=== PATIENT | female | born 1955 | race African-American/Black ===

== ENCOUNTER → 2017-08-09 | Outpatient (CLI) | payer OTHER ==
[~2017-08-09] MED LIST: IOPAMIDOL 370 MG/ML 200 ML INFUS..BTL INJ ONE; SODIUM CHLORIDE 0.9% 50ML 50 ML ONE
[2017-08-09 17:10] LABS: BLOOD UREA NITROGEN 14 mg/dL (7-26); BUN/CREATININE RATIO 18 (6-25); CREATININE, SERUM 0.77 mg/dL (0.57-1.11); EST GLOMERULAR FILTRATION RATE > 60 ML/MIN (60-)
--- NOTE | 2017-08-09 18:09 | Diagnostic Imaging Report ---
PROCEDURE: CT ABDOMEN WITH CONTRAST TECHNIQUE: The abdomen was scanned utilizing a multidetector helical scanner from the diaphragm to the iliac crest after the IV administration of 100 cc of Isovue 370 and the oral administration of water. Coronal and sagittal multiplanar reformations were obtained. DLP: 96.5 mGy-cm COMPARISON: CT 12/11/2016 and 12/15/2016 INDICATIONS: MALIGNANT NEOPLASM PANCREAS FINDINGS: LOWER THORAX: Normal. HEPATOBILIARY: No focal hepatic lesions. No biliary ductal dilatation. SPLEEN: Interval splenectomy. PANCREAS: Interval partial pancreatectomy of the body and tail. A 2.1 x 1.5 x 2.1 cm post-operative fluid collection is noted along the resection margin. No focal masses or ductal dilatation within the remaining portions. ADRENALS: No adrenal nodules. KIDNEYS: No hydronephrosis, stones, or solid mass lesions. A few tiny hypodensities in both kidneys are too small to characterize but statistically likely cysts. PERITONEUM / RETROPERITONEUM: No free air or fluid. LYMPH NODES: No lymphadenopathy. VESSELS: Unremarkable. Portal, splenic, portal and superior mesenteric veins are patent. Splenic vein is absent. GI TRACT: Visualized portions of the bowel demonstrate no distention or wall thickening. BONES AND SOFT TISSUES: Status post fusion of L4-L5 and L5-S1 with bone stimulator. No acute or aggressive osseous lesions. Midline laparotomy scar. IMPRESSION: Interval resection of the pancreatic body and tail with a small post-operative fluid collection along the resection margin. Interval splenectomy. No evidence of recurrent or metastatic disease in the visualized abdomen. Dictated by: Balta Gorman M.D. on 08/09/2017 at 18:10 Electronically approved by: Balta Gorman M.D. on 08/09/2017 at 18:10
== END ==
LOC: CT 16:15
PROVIDERS: ATTEND Emergency Medicine
DX: C25.1 Malignant neoplasm of body of pancreas (principal)
CPT/HCPCS: 36415; 74160; 82565; 84520; Q9967

== ENCOUNTER → 2018-10-28 | Outpatient (CLI) | payer OTHER | LOC: CARD 14:08 | PROVIDERS: ATTEND Emergency Medicine | DX: I70.90 Unspecified atherosclerosis (principal); Z86.73 Personal history of transient ischemic attack (TIA), and cerebral infarction without residual deficits | CPT/HCPCS: 93880 ==

== ENCOUNTER 2020-03-12 01:19 | Emergency (ER) | payer OTHER ==
[~2020-03-12] VITALS: Ht 162.6 cm; Wt 53.5 kg
[2020-03-12] MEDS ORDERED: PANTOPRAZOLE 40 MG 10ML VIAL IV STA (01:51)
[2020-03-12 02:04] LABS: BILIRUBIN,URINE NEGATIVE (NEGATIVE); CLARITY,URINE CLEAR (CLEAR); COLOR,URINE YELLOW (YELLOW); KETONES,URINE NEGATIVE (NEGATIVE); LEUKOCYTE ESTERASE ,URINE NEGATIVE (NEGATIVE); NITRITE,URINE NEGATIVE (NEGATIVE); PROTEIN,URINE DIPSTICK NEGATIVE (NEGATIVE); URINE UROBILINOGEN 0.2 mg/dL (0.2 - 1)
[2020-03-12 02:10] LABS: BACTERIA,URINE RARE /HPF; EPITHELIAL CELLS,URINE FEW /LPF; RBC,URINE 0-5 /HPF (0-5); WBC,URINE (MAN) 0-5 /HPF (0-5)
--- NOTE | 2020-03-12 02:23 | Emergency Department Note ---
History of Present Illnes History of Present Illness Chief Complaint: Abdominal Complaints History of Present Illness This is a 64 year old female c/o mid abdominal pain that started last Wednesday. Patient being treated for pancreatic cancer. Denies nausea or vomiting. No distress noted at this time . Historian: Patient Arrival Mode: Car Landing Scaler Required: No Onset (how long ago): day(s) (6) Location: UPPER ABD Quality: PAIN Radiation: Reports non-radiation Severity: mild Onset quality: gradual Duration (how long): day(s) (6) Timing of current episode: intermittent Progression: waxing and waning Chronicity: recurrent Context: Reports recent illness (HAS PANCREATIC CANCER) Relieving factors: none Exacerbating factors: none Associated symptoms: Reports denies other symptoms Past Medical/Family History Physician Review I have reviewed the patient's past medical and family history. Any updates have been documented here. Past Medical History Recent Fever: No Clinical Suspicion of Infectio: No New/Unexplained Change in Ment: No Past Medical History: Diabetes Other Medical History: pancreatic CA Other Surgery: partial pancrectomy spleenectomy Social History Smoking Cessation: Never Smoker Alcohol Use: None Any Illegal Drug Use: No Review of Systems Review of Systems Constitutional: Reports no symptoms EENTM: Reports no symptoms Cardiovascular: Reports no symptoms Respiratory: Reports no symptoms Gastrointestinal: Reports as per HPI Genitourinary: Reports no symptoms Musculoskeletal: Reports no symptoms Integumentary: Reports no symptoms Neurological: Reports no symptoms Psychological: Reports no symptoms Endocrine: Reports no symptoms Hematological/Lymphatic: Reports no symptoms Physical Exam Related Data Allergies: Uncoded Allergies: PENICILLIN (Allergy, Unknown, 03/12/20) Triage Vital Signs Vital Signs Date Time Temp Pulse Resp B/P (MAP) Pulse Ox O2 Delivery O2 Flow Rate FiO2 03/12/20 01:51 99.6 85 20 166/86 95 Room Air Vital signs reviewed: Yes Physical Exam CONSTITUTIONAL Constitutional: Present well-developed, Present well-nourished; Absent distressed HENT HENT: Present normocephalic, Present atraumatic, Present oropharynx clear/moist, Present nose normal HENT L/R: Present left ext ear normal, Present right ext ear normal EYES Eyes: Reports PERRL, Reports conjunctivae normal NECK Neck: Present ROM normal PULMONARY Pulmonary: Present effort normal, Present breath sounds normal CARDIOVASCULAR Cardiovascular: Present regular rhythm, Present heart sounds normal, Present c apillary refill normal, Present normal rate GASTROINTESTINAL Abdominal: Present soft, Present bowel sounds normal, Present tender (MILD EPIGASTRIC TENDERNESS) GENITOURINARY Genitourinary: Present exam deferred SKIN Skin: Present warm, Present dry MUSCULOSKELETAL Musculoskeletal: Present ROM normal NEUROLOGICAL Neurological: Present alert, Present oriented x 3, Present no gross motor or sensory deficits PSYCHOLOGICAL Psychological: Present mood/affect normal, Present judgement normal Results Laboratory Laboratory Laboratory Tests Test 03/12/20 02:05 03/12/20 01:40 White Blood Count 9.90 x10e3/uL (4.8-10.8) Red Blood Count 4.38 x10e6/uL (3.6-5.1) Hemoglobin 11.9 g/dL (12.0-16.0) Hematocrit 37.3 % (34.2-44.1) Mean Corpuscular Volume 85.2 fL (81-99) Mean Corpuscular Hemoglobin 27.2 pg (28-32) Mean Corpuscular Hemoglobin Concent 31.9 g/dL (31-35) Red Cell Distribution Width 14.7 % (11.7-14.4) Platelet Count 269 x10e3/uL (140-360) Neutrophils (%) (Auto) 55.3 % (38.7-80.0) Lymphocytes (%) (Auto) 29.0 % (18.0-39.1) Monocytes (%) (Auto) 11.2 % (4.4-11.3) Eosinophils (%) (Auto) 3.2 % (0.0-6.0) Basophils (%) (Auto) 0.9 % (0.0-1.0) Neutrophils # (Auto) 5.5 (2.1-6.9) Lymphocytes # (Auto) 2.9 (1.0-3.2) Monocytes # (Auto) 1.1 (0.2-0.8) Eosinophils # (Auto) 0.3 (0.0-0.4) Basophils # (Auto) 0.1 (0.0-0.1) Absolute Immature Granulocyte (auto 0.04 x10e3/uL (0-0.1) Sodium Level 142 mmol/L (136-145) Potassium Level 3.8 mmol/L (3.5-5.1) Chloride Level 105 mmol/L (98-107) Carbon Dioxide Level 29 mmol/L (22-29) Anion Gap 11.8 mmol/L (8-16) Blood Urea Nitrogen 16 mg/dL (7-26) Creatinine 0.80 mg/dL (0.57-1.11) Estimat Glomerular Filtration Rate > 60 ML/MIN (60-) BUN/Creatinine Ratio 20 (6-25) Glucose Level 137 mg/dL (74-118) Calcium Level 10.2 mg/dL (8.4-10.2) Total Bilirubin 0.2 mg/dL (0.2-1.2) Aspartate Amino Transf (AST/SGOT) 35 IU/L (5-34) Alanine Aminotransferase (ALT/SGPT) 32 IU/L (0-55) Alkaline Phosphatase 139 IU/L (40-150) Creatine Kinase 103 IU/L (29-168) Creatine Kinase MB 1.50 ng/mL (0-5.0) Troponin I 0.007 ng/mL (0-0.300) Total Protein 8.7 g/dL (6.5-8.1) Albumin 4.0 g/dL (3.5-5.0) Globulin 4.7 g/dL (2.3-3.5) Albumin/Globulin Ratio 0.9 (0.8-2.0) Amylase Level 95 U/L (25-125) Lipase < 4 U/L (8-78) Urine Color Yellow (YELLOW) Urine Clarity Clear (CLEAR) Urine pH 6.5 (5 - 7) Urine Specific [place] 1.010 (1.010-1.025) Urine Protein Negative (NEGATIVE) Urine Glucose (UA) Negative (NEGATIVE) Urine Ketones Negative (NEGATIVE) Urine Blood Negative (NEGATIVE) Urine Nitrite Negative (NEGATIVE) Urine Bilirubin Negative (NEGATIVE) Urine Urobilinogen 0.2 mg/dL (0.2 - 1) Urine Leukocyte Esterase Negative (NEGATIVE) Urine RBC 0-5 /HPF (0-5) Urine WBC 0-5 /HPF (0-5) Urine Epithelial Cells Few /LPF (NONE) Urine Bacteria Rare /HPF (NONE) Laboratory Tests Test 03/12/20 01:40 Urine Color Yellow (YELLOW) Urine Clarity Clear (CLEAR) Urine pH 6.5 (5 - 7) Urine Specific [place] 1.010 (1.010-1.025) Urine Protein Negative (NEGATIVE) Urine Glucose (UA) Negative (NEGATIVE) Urine Ketones Negative (NEGATIVE) Urine Blood Negative (NEGATIVE) Urine Nitrite Negative (NEGATIVE) Urine Bilirubin Negative (NEGATIVE) Urine Urobilinogen 0.2 mg/dL (0.2 - 1) Urine Leukocyte Esterase Negative (NEGATIVE) Urine RBC 0-5 /HPF (0-5) Urine WBC 0-5 /HPF (0-5) Urine Epithelial Cells Few /LPF (NONE) Urine Bacteria Rare /HPF (NONE) Lab results reviewed: Yes Imaging Imaging results reviewed: Yes Impressions Procedure: [id number] DX/ABDOMEN 2 VIEW Exam Date: Exam Time: REPORT STATUS: Signed EXAM: Abdomen Radiograph 2 View(s) supine and upright INDICATION: Abdominal pain ^FLAT AND UPRIGHT ^Y COMPARISON: None FINDINGS: Electronic devices project over the L4 vertebral body and left hemiabdomen. Posterior fusion of L4-S1, incompletely assessed. Gas and stool are seen throughout the colon to the level of the rectum in a nonobstructive pattern. No dilated small bowel loops. No free air. Non specific calcific density projects over the right hepatic lobe. IMPRESSION: Nonobstructive bowel gas pattern. Signed by: Olinda Patel MD on 03/12/2020 3:22 AM Dictated By: OLINDA PATEL MD 1 Transcribed By: LANI on 03/12/20321 COPY TO: DEMETRIA DOWD MD~ Procedures 12 Lead ECG Interpretation ECG Interpretation : ECG: ECG 1 Landing Scaler: Interpreted by ED physician Date: Mar 12, 2020 Time: 02:13 Rhythm: sinus rhythm Rate: normal BPM: 70 QRS axis: normal ST segments normal: Yes T waves normal: Yes Clinical Impression: non-specific ECG Additional Comments OCCASIONAL PAC'S PRESENT Assessment & Plan Medical Decision Making MDM PT WITH UPPER ABD PAIN CBC, CMP, AMYLASE, LIPASE, UA, KUB, CARDIAC ENZYMES ORDERED TO EVAL FOR PANCREATITIS, MYOCARDIAL INFARCTION, CONSTIPATION, ELECTROLYTE ABNORMALITY Assessment & Plan Final Impression: (1) Abdominal pain Depart Disposition: HOME, SELF-CARE Last Vital Signs Date Time Temp Pulse Resp B/P (MAP) Pulse Ox O2 Delivery O2 Flow Rate FiO2 03/12/20 01:51 99.6 85 20 166/86 95 Room Air Medications in the ED Pantoprazole Sodium 40 mg NOW STAT IV ; Start 03/12/20 at 01:51; Stop 03/12/20 at 02:08; Status DC DEMETRIA DOWD MD Mar 12, 2020 02:23
[2020-03-12 02:33] LABS: BASOPHILS # (AUTO) 0.1 (0.0-0.1); BASOPHILS % 0.9 % (0.0-1.0); EOSINOPHILS # (AUTO) 0.3 (0.0-0.4); EOSINOPHILS % 3.2 % (0.0-6.0); HEMATOCRIT 37.3 % (34.2-44.1); HEMOGLOBIN 11.9 g/dL (12.0-16.0); LYMPHOCYTES # (AUTO) 2.9 (1.0-3.2); MEAN CORPUSCULAR HEMOGLOBIN 27.2 pg (28-32); MEAN CORPUSCULAR HGB CONC 31.9 g/dL (31-35); MEAN CORPUSCULAR VOLUME 85.2 fL (81-99); MONOCYTES # (AUTO) 1.1 (0.2-0.8); MONOCYTES % 11.2 % (4.4-11.3); NEUTROPHILS # (AUTO) 5.5 (2.1-6.9); NEUTROPHILS % 55.3 % (38.7-80.0); PLATELET COUNT 269 x10e3/uL (140-360); RED BLOOD COUNT 4.38 x10e6/uL (3.6-5.1); RED CELL DISTRIBUTION WIDTH 14.7 % (11.7-14.4)
[2020-03-12 02:51] LABS: AMYLASE 95 U/L (25-125); LIPASE < 4 U/L (8-78)
--- OUTSIDE RECORDS SUMMARY | 2020-03-12 02:52 | XMS REPORT | Continuity of Care Document ---
Author Author [employer] Address Unknown Phone Unavailable Care Team Providers Care Freight Delivery Driver Name Role Phone L2 Information Exchange Unavailable Un available Problems Problem Status Onset Date Classification Date Reported Comments Source Other specified cardiac dysrhythmias Active Problem Gene Benitez MD, PA Family history of ischemic heart disease and other diseases of the circulatory system Active Problem 08/10/2019 Gene Benitez MD, MARTIN Type 2 diabetes mellitus without complications Active Problem 08/10/2019 Gene Benitez MD, P A Pulmonary hypertension, secondary Active Problem Gene Benitez MD, PA Bradycardia, unspecified Active Problem 08/10/2019 Gene Benitez MD, PA 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 Active Problem 08/10/2019 Gene Benitez MD, PA Hypertensive heart disease without heart failure Active Problem 08/10/2019 Gene Benitez MD, P A Cerebrovascular disease, unspecified Active Problem Gene Benitez MD, PA Secondary pulmonary arterial hypertension Active Problem 08/10/2019 Gene Benitez MD P A Malignant neoplasm of body of pancreas Active Problem Gene Benitez MD, PA Carotid bruit Active Diagnosis 12/30/2014 Gene Benitez MD, PA Medications Medication Details Route Status Patient Instructions Ordering Provider Order Date Source Hydrochlorothiazide 1 tablet i n the morning Orally Active 25 MG Orally Once a day [place] 05/04/2017 Gene Benitez MD, PA Hydrochlorothiazide 1 tablet i n the morning Orally Active 12.5 MG Orally Once a day Tayyan 04/28/2017 Gene Benitez MD, PA Amlodipine Besylate 1 tablet Orally Active 5 MG Orally Once a day [facility] 2015 Gene Benitez MD, PA Amlodipine Besylate 1 tablet Orally Active 5 MG Orally Once a day [facility] 2015 Gene Benitez MD, PA Diltiazem HCl ER 1 capsule Orally No Longer Active 90 MG Orally Twice a day [facility] 2015 Gene Benitez MD, MARTIN Metoprolol Tartrate 1 tablet Orally Active 50 MG Orally Twice a day Emmanuel Benitez MD, MARTIN Folic Acid 1 tablet Orally Active 1 MG Orally Once a day Emmanuel Benitez MD, PA Ibandronate Sodium 1 tablet Orally Active 150 MG Orally once a month Emmanuel Benitez MD, MARTIN Aspirin 1 tablet Orally Active 81 MG Orally Once a day Emmanuel Benitez MD, PA Creon as directed Orally Active [id number] UNIT Orally [facility] Zach Benitez MD, MARTIN Clonazepam 1 tablet Orally Active 1 MG Orally as needed ( prn) Emmanuel Benitez MD, PA Carisoprodol 1 tablet Orally Active 350 MG Orally as needed (prn) Emmanuel Benitez MD, MARTIN Fish Oil 1 capsule Orally Active Orally Emmanuel Benitez MD, MARTIN Famotidine 1 tablet Orally Active 20 MG Orally Once a day Emmanuel Benitez MD, PA Lisinopril 1 tablet Orally Active 20 MG Orally Once a day Emmanuel Benitez MD, MARTIN Lisinopril 1 tablet Orally Active 20 MG Orally Once a day Emmanuel Benitez MD, MARTIN Famotidine 1 tablet Orally Active 20 MG Orally Once a day Emmanuel Benitez MD, MARTIN Clonazepam 1 tablet Orally Active 1 MG Orally as needed ( prn) Emmanuel Benitez MD, PA Ibandronate Sodium 1 tablet Orally Active 150 MG Orally once a month Emmanuel Benitez MD, MARTIN Aspirin 1 tablet Orally Active 81 MG Orally Once a day Emmanuel Benitez MD, PA Folic Acid 1 tablet Orally Active 1 MG Orally Once a day Emmanuel Benitez MD, MARTIN Carisoprodol 1 tablet Orally Active 350 MG Orally as needed (prn) Emmanuel Benitez MD, PA Metoprolol Tartrate 1 tablet Orally Active 50 MG Orally Twice a day Emmanuel Benitez MD, MARTIN Xeloda as directed Orally Active 500 MG Orally Emmanuel Benitez MD, MARTIN Diltiazem HCl ER 1 capsule Orally Active 90 MG Orally Twice a day Emmanuel Benitez MD, MARTIN Aspirin 1 tablet Orally Active 81 MG Orally Once a day Emmanuel Benitez MD, PA Metoprolol Tartrate 1 tablet Orally Active 25 MG Orally Twice a day Emmanuel Benitez MD, PA Fish Oil 1 capsule Orally Active Orally Emmanuel Benitez MD, MARTIN Lisinopril 1 tablet Orally Active 20 mg Orally Once a day Emmanuel Benitez MD, PA Allergies, Adverse Reactions, Alerts Substance Category Reaction Severity Reaction type Status Date Reported Comments Source penicillin Adverse Reaction Info Not Available Adverse Reaction Active 08/03/2019 Gene Benitez MD, PA Immunizations No Data Provided for This Section Results No Data Provided for This Section Pathology Reports No Data Provided for This Section Diagnostic Reports No Data Provided for This Section Consultation Notes No Data Provided for This Section Discharge Summaries No Data Provided for This Section History and Physicals No Data Provided for This Section Vital Signs Vital Sign Value Date Comments Source Weight 113 08/03/2019 Gene Benitez MD, MARTIN Heart Rate 65 08/03/2019 Gene Benitez MD, MARTIN Diastolic (mm Hg) 70 08/03/2019 Gene Benitez MD, MARTIN Systolic (mm Hg) 135 08/03/2019 Gene Benitez MD, PA Weight 111 01/30/2019 Gene Benitez MD, MARTIN Heart Rate 59 01/30/2019 Gene Benitez MD, PA Diastolic (mm Hg) 67 01/30/2019 Gene Benitez MD, MARTIN Systolic (mm Hg) 132 01/30/2019 Gene Benitez MD, PA Weight 115 07/20/2018 Gene Benitez MD, MARTIN Heart Rate 71 07/20/2018 Gene Benitez MD, PA Diastolic (mm Hg) 60 07/20/2018 Gene Benitez MD, MARTIN Systolic (mm Hg) 130 07/20/2018 Geen Benitez MD, PA Weight 114 06/29/2018 Gene Benitez MD, MARTIN Heart Rate 79 06/29/2018 Gene Benitez MD, PA Diastolic (mm Hg) 70 06/29/2018 Gene Benitez MD, PA Systolic (mm Hg) 136 06/29/2018 Gene Benitez MD, PA Weight 111 05/16/2018 Gene Benitez MD, PA Heart Rate 65 05/16/2018 Gene Tayyan, MD, PA Diastolic (mm Hg) 70 05/16/2018 Gene Benitez MD, PA Systolic (mm Hg) 130 05/16/2018 Gene Benitez MD, PA Weight 108 04/22/2017 Gene Benitez MD, PA Heart Rate 55 04/22/2017 Gene Benitez MD, PA Diastolic (mm Hg) 70 04/22/2017 eGne Benitez MD, PA Systolic (mm Hg) 138 04/22/2017 Gene Benitez MD, PA Weight 124 09/08/2016 Gene Benitez MD, PA Heart Rate 55 09/08/2016 Gene Benitez MD, PA Diastolic (mm Hg) 56 09/08/2016 Gene Benitez MD, PA Systolic (mm Hg) 140 09/08/2016 Gene Benitez MD, PA Weight 120 07/21/2016 Gene Benitez MD, PA Heart Rate 64 07/21/2016 Gene Benitez MD, PA Diastolic (mm Hg) 70 07/21/2016 Gene Benitez MD, PA Systolic (mm Hg) 132 07/21/2016 Gene Benitez MD, PA Weight 125 01/16/2016 Gene Benitez MD, PA Heart Rate 60 01/16/2016 Gene Benitez MD, PA Diastolic (mm Hg) 60 01/16/2016 Gene Benitez MD, PA Systolic (mm Hg) 140 01/16/2016 Gene Benitez MD, PA Weight 130 07/10/2015 Gene Benitez MD, PA Heart Rate 63 07/10/2015 Gene Benitez MD, PA Diastolic (mm Hg) 60 07/10/2015 Gene Benitez MD, PA Systolic (mm Hg) 127 07/10/2015 Gene Benitez MD, PA Weight 135 2015 Gene Benitez MD, PA Heart Rate 54 2015 Gene Benitez MD, PA Diastolic (mm Hg) 60 2015 Gene Benitez MD, PA Systolic (mm Hg) 120 2015 Gene Benitez MD, PA Weight 136 12/24/2014 Gene Benitez MD, PA Heart Rate 52 12/24/2014 Gene Benitez MD, PA Diastolic (mm Hg) 50 12/24/2014 Gene Benitez MD, PA Systolic (mm Hg) 120 12/24/2014 Gene Benitez MD, PA Encounters Location Location Details Encounter Type Encounter Number Reason For Visit Attending Provider ADM Date DC Date Status Source Gene Benitez MD, PA Follow-Up [id number] 12/25/19 15 12/24/2014 Gene Benitez MD, PA Gene Benitez MD, PA Follow-Up [id number] 12/25/19 15 12/24/2014 Gene Benitez MD, PA Gene Benitez MD, PA Follow-Up [id number] 12/25/19 15 12/24/2014 Gene Benitez MD, PA Gene Benitez MD, PA Follow-Up [id number] 12/25/19 15 12/24/2014 Gene Benitez MD, PA Gene Benitez MD, PA Follow-Up [id number] 12/25/19 15 12/24/2014 Gene Benitez MD, PA Gene Benitez MD, PA Refill [id number] 12/25/19 15 12/24/2014 Gene Benitez MD, PA Gene Benitez MD, PA Follow-Up [id number] 12/25/19 15 12/24/2014 Gene Benitez MD, PA Gene Benitez MD, PA Refill [id number] 12/25/19 15 12/24/2014 Gene Benitez MD, PA Gene Benitez MD, PA Refill [id number] 12/25/19 15 12/24/2014 Gene Benitez MD, PA Gene Benitez MD, PA Refill [id number] 12/25/19 15 12/24/2014 Gene Benitez MD, MARTIN Benitez MD, PA Refill [id number] 12/25/19 15 12/24/2014 Gene Benitez MD, PA Gene Benitez MD, PA Refill [id number] 12/25/19 15 12/24/2014 Gene Benitez MD, PA Gene Benitez MD, PA Follow-Up [id number] 06/10/19 16 2015 Gene Benitez MD, PA Gene Benitez MD, PA Follow-Up [id number] 06/10/19 16 2015 Gene Beintez MD, PA Gene Benitez MD, PA Follow-Up [id number] 06/10/19 16 2015 Gene Benitez MD, PA Gene Benitez MD, PA Follow-Up [id number] 06/10/19 16 2015 Gene Benitez MD, PA Gene Benitez MD, PA Refill [id number] 06/11/19 16 06/11/2015 Gene Benitez MD, MARTIN Benitez MD, PA Refill [id number] 06/11/19 16 06/11/2015 Gene Benitez MD, MARTIN Benitez MD, PA Refill [id number] 06/11/19 16 06/11/2015 Gene Benitez MD, PA Gnee Benitez MD, PA Refill [id number] 06/11/19 16 06/11/2015 Gene Benitez MD, PA Gene Benitez MD, PA Refill [id number] 06/11/19 16 06/11/2015 Gene Benitez MD, PA Gene Benitez MD, PA echo/carotid/arterial dopplers [id number] 07/04/2015 07/04/2015 Gene Benitez MD, PA Gene Benitez MD, PA echo/carotid/arterial dopplers [id number] 07/04/2015 07/04/2015 Gene Benitez MD, PA Gene Benitez MD, PA echo/carotid/arterial dopplers [id number] 07/04/2015 07/04/2015 Gene Benitez MD, PA Gene Benitez MD, PA Follow-Up [id number] 07/10/19 16 07/10/2015 Gene Benitez MD, PA Gene Benitez MD, PA Follow-Up [id number] 07/10/19 16 07/10/2015 Gene Benitez MD, PA Gene Benitez MD, PA Follow-Up [id number] 01/16/20 16 01/16/2016 Gene Benitez MD, PA Procedures No Data Provided for This Section Assessment and Plan No Data Provided for This Section Plan of Care No Data Provided for This Section Social History Social History Date Source Social History ElementQualifiersDate Rep orted Tobacco Use: . Are you a: never smoker Jan 16, 2016 Marital Status: . Jan 16, 2016 Do you drink alcohol? . Status: No Jan 16, 2016 01/16/2016 Gene Benitez MD, P A Family History No Data Provided for This Section Advance Directives No Data Provided for This Section Functional Status No Data Provided for This Section
[2020-03-12 02:53] LABS: ALANINE AMINOTRANSFERASE 32 IU/L (0-55); ALBUMIN/GLOBULIN RATIO 0.9 (0.8-2.0); ALKALINE PHOSPHATASE 139 IU/L (40-150); ANION GAP 11.8 mmol/L (8-16); BLOOD UREA NITROGEN 16 mg/dL (7-26); BUN/CREATININE RATIO 20 (6-25); CALCIUM 10.2 mg/dL (8.4-10.2); CARBON DIOXIDE 29 mmol/L (22-29); CHLORIDE 105 mmol/L (98-107); CREATINE KINASE 103 IU/L (29-168); EST GLOMERULAR FILTRATION RATE > 60 ML/MIN (60-); GLUCOSE 137 mg/dL (74-118); POTASSIUM 3.8 mmol/L (3.5-5.1); SODIUM 142 mmol/L (136-145)
--- OUTSIDE RECORDS SUMMARY | 2020-03-12 02:53 | XMS REPORT | Continuity of Care Document ---
Author Author [facility] Organization [facility] Address [address] [place] [address] Phone Unavailable Care Team Providers Care Case Mgr Name Role Phone Eusebio TAI PCP Unavailable RONAN CONTE Attphys Unavailable Bj MURILLO, Rosemary Gumzan Attphys Unavailable Yuan LYN, Shantanu Attphys Zaire LYN, Eusebio Richard Attphys Bee COSTA, M Casi Attphys Unavailable Michael LYN, Micki Attphys [phone] Bin TRANSFER PROFESSOR, E Alix Attphys Ja MURILLO, Ave Jc Attphys Unavailable Katya MURILLO, Ashley BenoitAnnalisa Attphys Unavailable Amara LYN, Cj Corona Attphys Catrachita LYN, Dago Attphys Karol Sands Attphys Mery Morillo MD Attphys Joss MURILLO, Ashley Lugo Attphys Unavailable Navjot MURILLO, Alessandro Hicks Attphys Unavailable Jailene LYN, Ge Gtz Attphys [phone] Isaiah Cook MD, Mor Attphys Harmeet FAY, B Tana Attphys Unavailable Zaire LYN, Supa Attphys Carlitos LYN, Ang Attphys Karel [facility], Romi Attphys Jose L HIDE TANNER, Gi Attphys Juanita CARAMEL CUTTER MACHINE, Dino Attphys Dustin MURILLO, R Erika Attphys Unavailable Rebecca TRANSFER PROFESSOR, S Amna Attphys Ham TRANSFER PROFESSOR, G Jaye Attphys Unavailable oMhsen TRANSFER PROFESSOR, Bowie Attphys Zhou PA, Catrinamin Attphys Anita TRANSFER PROFESSOR, Lyn Attphys ZAIRE, Eusebio TANNERI Attphys Unavailable Jerrod LYN, Chica Attphys Ricardo Pro Attphys Malina Kowalski Attphys ANG URBINA Attphys Unavailable Leandra MURILLO, Ronan Attphys SUPA TAI Attphys Unavailable Kristen RN, P Kennedy Attphys Unavailable Brent MURILLO, Mamadou Floresesa Attphys Unavailable Mk MURILLO, M Cheryle Attphys Unavailable Cris MOP, Lorraine Gaspar Attphys Champ RN, L Melina Attphys Unavailable Gwen RN, Keila Attphys Unavailable Td RN, Gwendolyn Attphys Unavailable Xavier Mix MA, Eusebio Alas Attphys Unavailable Major LYN, Austin Attphys Unavailable Rocio Allen MD, Boni Attphys Juan C, Alicia Attphys Kimberly RN, B Cristeta Attphys Unavailable Norah TRANSFER PROFESSOR, H Erica Attphys Malachi PA, Aishwarya Attphys Jose L RN, Rena Attphys Unavailable Tristan TRANSFER PROFESSOR, G Mariposa Attphys Kenneth RN, M Niesha Attphys Pro TRANSFER PROFESSOR, L Reina Attphys Karlo RN, A Jessica Attphys Unavailable Zena Rodriguez Attphys Unavailable Delfino Cordova RN, S Linita Attphys Unavailable Mora MURILLO, Hudson Attphys Unavailable Jordan SALAZAR, BIsaak Yan Attphys Alexandro Brito PharmD Attphys Samira RN, Kelsie Attphys Maury RN, P Ranulfo Attphys Unavailable Doug MURILLO, Eusebio Deal Attphys Unavailable Andrae LYN, Carmen Attphys Rohini [facility], Aaron Ordonez Attphys Jose MURILLO, Rosemary Hernandez Attphys Unavailable Yohana MURILLO, Alessandro Hendricks Attphys Unavailable Sebas RN, Shamir Dye Attphys [phone] Lenin Avalos DO Attphys Caesar LYN, Kurt Lemon Attphys TONO MARVIN Attphys Unavailable Payers Payer Name Policy Type Policy Number Effective Date Expiration Date Hunter LUCERO O [id number] 2000 00:00:00 Problems Condition Name Condition Details Condition Category Status Onset Date Resolution Date Last Treatment Date Treating Clinician Comments Source Type 1 diabetes mellitus Type 1 diabetes mellitus Disease Acti ve 2020-02-22 00:00:00 MD Chowdhury Type 1 diabetes mellitus with hyperglycemia Type 1 chema betes mellitus with hyperglycemia Disease Active 2019-04-10 00:00:00 MD Chowdhury Adverse effect of glucocorticoids and synthetic analog ues Adverse effect of glucocorticoids and synthetic analogues Disease Active 2018-05-09 00:00:0 0 MD Chowdhury Encounter for antineoplastic chemotherapy Encounter fo r antineoplastic chemotherapy Disease Active 2017-09-09 00:00:00 MD Chowdhury Diabetes mellitus due to underlying condition with hyp erglycemia Diabetes mellitus due to underlying condition with hyperglycemia Disease Acti ve 2017-07-16 00:00:00 MD Eliseo peñaloza Long-term (current) use of insulin Long-term (current) use of in sulin Disease Active 2017-07-16 00:00:00 MD Perla subramanian Pancreatic cancer Pancreatic cancer Disease Active 2017-01-05 00:00:00 MD Chowdhury TIA TIA Disease Active 2000-04-26 00:00:00 Ove rview: symptoms resolved MD Chowdhury Other specified cardiac dysrhythmias Other specified cardiac dysrhythmias Active Problem 08/10/2019 Gene Benitez MD, PA Problem Active 2019-08-10 04:10:02 Geoffrey Wu Family history of ischemic heart disease and other diseases of the circulatory system Family history o f ischemic heart disease and other diseases of the circulatory system Active Problem 08/10/2019 Gene Benitez MD, PA Problem Active 2019-08-10 04:10:02 Oscar Wu Type 2 diabetes mellitus without complications Type 2 diabetes mellitus without complications Active Problem 08/10/2019 Gene Benitez MD, PA Problem Active 2019-08-10 04:10:02 Oscar Wu Pulmonary hypertension, secondary Pulmonary hypertension, secondary Active Problem 08/10/2019 Gene Benitez MD, PA Problem Active 2019-08-10 04:10:02 Geoffrey Wu Bradycardia, unspecified Pietro ycardia, unspecified Active Problem 08/10/2019 Gene Benitez MD, PA Problem Active 2019-08-10 04:10:02 [facility] 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 Benign hypertensive heart disease without heart failure Active Problem 08/10/2019 Gene Benitez MD, PA Problem Active 2019-08-10 04:10:02 [facility] Hypertensive heart disease without heart failure Hypertensive heart disease without heart failure Active Problem 08/10/2019 Gene Benitez MD, PA Problem Active 2019-08-10 04:10:02 [facility] Cerebrovascular disease, unspecified Cerebrovascular disease, unspecified Active Problem 08/10/2019 Gene Benitez MD, PA Problem Active 2019-08-10 04:10:02 Geoffrey Ibarraann Secondary pulmonary arterial hypertension Secondary pulmonary arterial hypertension Active Problem 08/10/2019 Gene Benitez MD, PA Problem Active 2019-08-10 04:10:02 [facility] Malignant neoplasm of body of pancreas Malignant neoplasm of body of pancreas Active Problem 08/10/2019 Gene Benitez MD, PA Problem Active 2019-08-10 04:10:02 [facility] Carotid bruit Benjamin tid bruit Active Diagnosis 12/30/2014 Gene Benitez MD, PA Diagnosis Active 2014-12-30 04:10:01 [facility] Essential hypertension Essential hypertension Disease Active Overview: Regulated on current regimen MD Chowdhury Cardiac murmur (aka Heart murmur NOS) Cardiac murmur (aka He art murmur NOS) Disease Active MD Krzysztof hewitt Allergies, Adverse Reactions, Alerts Allergy Name Allergy Type Status Severity Reaction(s) Onset Date Inacti ve Date Treating Clinician Comments Source penicillin penicillin Active Info Not Available 2019-08-03 00:00:0 0 [facility] PENICILLINS Drug Class Active 2016-12-29 00:00:00 MD Chowdhury PENICILLINS Drug Class Active 2016-12-29 00:00:00 MD Chowdhury PENICILLINS Drug Class Active 2016-12-29 00:00:00 MD Chowdhury PENICILLINS Drug Class Active 2016-12-29 00:00:00 MD Chowdhury PENICILLINS Drug Class Active 2016-12-29 00:00:00 MD Chowdhury PENICILLINS Drug Class Active 2016-12-29 00:00:00 MD Chowdhury penicillin G DA Active IN 2012-12-19 00:00:00 [facility] Family History Family Member Diagnosis Comments Start Date Stop Date Source Natural mother Hypertension Eliseo son Natural mother Kidney disease And erson Natural sister Diabetes MD Krzysztof hewitt Social History Social Habit Start Date Stop Date Quantity Comments Source Sex Assigned At MD Chowdhury Exposure to SARS-CoV-2 (event) Not sure MD Chowdhury Tobacco use and exposure 2020-01-02 00:00:00 2020-01-02 00:00:00 Yvonne nicholson used MD Chowdhury Alcohol intake 2020-01-02 00:00:00 2020-01-02 00:00:00 Current non-drinker of alcohol (finding) MD Chowdhury TobaccoUse: 2016-01-16 00:00:00 2016-01-16 00:00:00 [facility] Smoking Status Start Date Stop Date Source Never smoker MD Chowdhury Medications Ordered Medication Name Filled Medication Name Start Date Stop Da te Current Medication? Ordering Clinician Indication Dosage Frequency Signature (SIG) Comments Components Source carisoprodol (SOMA) 350 mg tablet 2020-02-23 14:38:18 2019 00:00:00 No carisoprodol 350 mg tablet MD Chowdhury ASPIRIN (ASPIR-81 ORAL) 2020-02-23 14:12:12 Yes 81mg Take 81 mg by mouth daily. MD Chowdhury amLODIPine (NORVASC) 5 mg tablet 2020-02-23 14:12:12 Yes 5mg Take 5 mg by mouth daily. MD Chowdhury ascorbic acid, vitamin C, (vitamin C) 1000 mg tablet 2 14:12:12 Yes 1000mg Take 1,000 mg by mouth. MD Chowdhury MULTIVIT/IRON/FA/K/HERB NO.244 (ALIVE WOMEN'S ENERGY ORAL) 2020-02-23 14:12:12 Yes 1mg Take 1 mg by mouth daily. MD Chowdhury lidocaine (LIDODERM) 5% (700 mg/patch) transdermal patch 2020-02-23 14:12:12 Yes 1{patch} Place 1 patch on the skin daily as needed (sciatic nerve pain). Remove & Discard patch within 12 hours or as directed by MD. Remove old patch(es) before replacing new patch(es). MD Chowdhury oxyCODONE (ROXICODONE) 5 mg immediate release tablet 2 00:00:00 Yes Neoplasm related pain (acute) (chronic) 5mg Take 1 tablet (5 mg) by mouth every 6 (six) hours as needed for moderate pain. MD Chowdhury DULoxetine (Cymbalta) 30 mg capsule 2020-02-23 00:00:00 Yes Neoplasm related pain (acute) (chronic) 30mg Take 1 capsule (30 mg) by mouth daily. MD Chowdhury senna (SENOKOT) 8.6 mg tablet 2020-02-23 00:00:00 Yes Slow transit constipation 2{tbl} Take 2-4 tablets by mouth twice daily. MD Chowdhury polyethylene glycol (Miralax) 17 g packet 2020-02-23 00:00:0 0 Yes Slow transit constipation 17g Take 17 g by mouth daily. MD Chowdhury insulin glargine (Basaglar KwikPen U-100 Insulin) 100 unit/mL (3 mL) insulin pen 2020-02-22 00:00:00 Yes Long-term (current) use of insulin 3U Inject 3 Units under the skin every morning. MD Ave gant insulin aspart, niacinamide, 100 unit/mL (3 mL) inpn 2 00:00:00 Yes Long-term (current) use of insulin 2U Inject 2-5 Units under the skin 3 (three) times a day before meals. blood-glucose sensor (Dexcom G6 Sensor) jitendra 2020-02-22 00:0 0:00 Yes Pancreatic cancer For continuous monitoring of glucose MD Chowdhury blood-glucose transmitter jitendra 2020-02-22 00:00:00 Yes Pancreatic cancer For use with Dexcom G6 sensor MD Chowdhury magnesium 30 mg tablet 2020-01-31 15:38:38 Yes 30mg Take 30 mg by mouth 2 (two) times a day as needed. Alessandro Chowdhury BRAN/GUM/FIB/JORGE ALBERTO/PSYL/KELP/PEC (FIBER 6 ORAL) 2020-01-31 15:38:3 8 Yes Take by mouth. MD Chowdhury calcipotriene (DOVONEX) 0.005 % cream 2020-01-31 15:38:38 Yes 1{application} Apply 1 application topically to affecte d area(s) as needed. MD Chowdhury hydrOXYzine HCl (ATARAX) 10 mg tablet 2020-01-31 15:38:38 Y es as needed. MD Chowdhury lidocaine (XYLOCAINE) 5% ointment 2020-01-31 15:38:38 Yes as needed. MD Chowdhury albuterol (PROAIR HFA) 90 mcg/puff inhaler 2020-01-31 15:38:38 Yes as needed. MD Chowdhury UNABLE TO FIND 2020-01-31 15:38:38 Yes 1{c apsule} Take 1 capsule by mouth daily. Med Name: [facility] OTC supplement containing Curcumin and Grape Seed. MD Chowdhury diclofenac sodium (Voltaren) 1 % gel 2020-01-31 15:38:38 Ye s diclofenac 1 % topical gel MD Chowdhury lidocaine (lidocaine) 20 mg/mL (2%) viscous solution 2 15:38:38 Yes Lidocaine Viscous 2 % mucosal solution MD Chowdhury sodium chloride (NORMAL SALINE FLUSH) 0.9% injection flush s yringe 2020-01-31 15:38:38 Yes Normal Saline Flush 0.9 % inj ection syringe MD Chowdhury coenzyme Q10 (CO Q-10) 300 mg cap 2020-01-31 15:38:37 Yes 1{capsule} Take 1 capsule by mouth daily. MD Monge on B-complex with vitamin C tablet 2020-01-31 15:38:37 Yes 2{tbl} Take 2 tablets by mouth daily. MD Chowdhury traMADol (Ultram) 50 mg tablet 2020-01-31 00:00:00 2020-01-27 00:00:00 No Neoplasm related pain (acute) (chronic) 50mg Take 1 tablet (50 mg) by mouth 2 (two) times a day as needed for moderate pain. MD Chowdhury mirtazapine (REMERON) 15 mg tablet 2020-01-24 00:00:00 00:00:00 No Adjustment disorder with anxious mood 15mg Take 1 tablet (15 mg) by mouth at bedtime. MD Chowdhury pen needle, diabetic (BD Ultra-Fine Beth Pen Needle) 32 gaug e x 5/32" ndle 2019-12-29 00:00:00 Yes Postprocedural hypoinsulinemia USE 4 TIMES DAILY FOR INJECTION OF INSULIN MD Chowdhury cream base no.32, bulk, crea 2019-12-21 08:54:08 2019-11-10 00:0 0:00 No Compounding Cream - [facility] Flurbiprofen, baclofen, bupivicaine, cyclobenzaprine, gabapentin 5%/2%/1%/2%/6% Apply three times daily on a regular basis for pain and/or muscle spasms MD Ave gant naproxen (NAPROSYN) 500 mg tablet 2019-12-21 08:54:08 2019 00:00:00 No 1{tbl} Take 1 tablet by mouth as needed. MD Chowdhury diazePAM (Valium) 2 mg tablet 2019-12-21 08:54:08 2019-09-07 04: 59:00 No 2mg Take 2 mg by mouth as needed. MD Chowdhury hydroCHLOROthiazide (HYDRODIURIL) 25 mg tablet 2 08:54:08 2019-09-06 00:00:00 No 1{tbl} Take 1 tablet by mouth daily. MD Chowdhury cream base no.32, bulk, crea 2019-12-21 08:54:08 2019-06-07 00:0 0:00 No Compounding Cream, (double strength) [facility] Flurbiprofen, baclofen, bupivicaine, cyclobenzaprine, gabapentin 10%/2%/3%/3%/6% Apply to area TID as needed. MD Chowdhury predniSONE (DELTASONE) 20 mg tablet 2019-12-21 08:54:0 8 2019-05-10 00:00:00 No prednisone 20 mg tablet MD Chowdhury alcohol swabs (ALCOHOL PADS) padm 2019-12-21 08:54:08 2018 00:00:00 No Alcohol Pads MD Bandar woody traMADol (ULTRAM) 50 mg tablet 2019-12-21 08:54:07 2019-12-13 00 :00:00 No 50mg Take 50 mg by mouth as needed. MD Chowdhury metoprolol succinate (TOPROL XL) 50 mg 24 hr tablet 2019-12-21 08:54:07 2019-11-10 00:00:00 No 25mg 25 mg twice daily. MD Chowdhury lidocaine HCl-menthol (ELENZAPATCH) 4-1 % ptmd 2 08:54:07 2019-06-07 00:00:00 No as needed. MD Ave gant diclofenac sodium 3 % gel 2019-12-21 08:54:05 2019-05-10 00:00:0 0 No 1{application} Apply 1 application topically twice daily. MD Chowdhury esomeprazole (NexIUM) 40 MG capsule 2019-12-13 00:00:00 Yes Chronic pain 40mg Take 1 capsule (40 mg) by mouth every morning. MD Chowdhury traMADol (Ultram) 50 mg tablet 2019-12-13 00:00:00 00:00:00 No Neoplasm related pain (acute) (chronic) 50mg Take 1 tablet (50 mg) by mouth every 6 (six) hours as needed for moderate pain. MD Chowdhury meloxicam (MOBIC) 7.5 mg tablet 2019-12-13 00:00:00 04:59:00 No Chronic pain 7.5mg Take 1 tablet (7.5 mg) by mouth twice michelle ly for 7 days. MD Chowdhury blood-glucose sensor (Dexcom G6 Sensor) jitendra 00:00:00 2020-02-22 00:00:00 No Pancreatic cancer For continuous monito ring of glucose MD Chowdhury mirtazapine (REMERON) 15 mg tablet 2019-12-01 00:00:00 00:00:00 No Adjustment disorder with anxious mood 15mg Take 1 tablet (15 mg) by mouth at bedtime. MD Chowdhury meloxicam (MILTONIC) 7.5 mg tablet 2019-12-01 00:00:00 00:00:00 No Chronic pain TAKE 1 TABLET BY MOUTH EVERY DAY NEEDED MD Chowdhury INV-() binimetinib 15 mg tablet 2019-10 00:00:00 2020-02-20 00:00:00 No Pancreatic cancer Take 30 mg (2 tablets) by mouth every 12 hours (+/- 2 hours) with or without food with full glass of water for 7 days ON, 7 days OFF for 28 days. MD Chowdhury INV-() talazoparib 0.25 mg capsule 2019 00:00:00 2020-02-20 00:00:00 No Pancreatic cancer Take 3 tablets (0.75mg) by mouth daily in the morning for 28 days with or immediately after binimetinib. MD Chowdhury meloxicam (MOBIC) 7.5 mg tablet 2019-11-08 00:00:00 00:00:00 No Chronic pain TAKE 1 TABLET BY MOUTH EVERY DAY NEEDED MD Chowdhury meloxicam (MOBIC) 7.5 mg tablet 2019-10-21 00:00:00 00:00:00 No Chronic pain TAKE 1 TABLET BY MOUTH EVERY DAY NEEDED MD Chowdhury mirtazapine (REMERON) 15 mg tablet 2019-10-16 00:00:00 202 00:00:00 No Adjustment disorder with anxious mood 15mg Take 1 tablet (15 mg) by mouth at bedtime. MD Chowdhury meloxicam (MOBIC) 7.5 mg tablet 2019-09-21 00:00:00 00:00:00 No Chronic pain 7.5mg Take 1 tablet (7.5 m g) by mouth daily as needed for moderate pain. MD Chowdhury insulin glargine (Basaglar KwikPen U-100 Insulin) 100 unit/mL (3 mL) insulin pen 2019-09-01 00:00:00 2020-02-22 00:00:00 No Long-term (current) use of insulin 4U Inject 4 Units under the skin every morning. 9 units on chemo days MD Chowdhury insulin aspart, niacinamide, 100 unit/mL (3 mL) inpn 2019-08-24 00:00:00 2020-02-22 00:00:00 No Long-term (current) use of insulin 5U Inject 5-9 Units under the skin 3 (three) times a day before meals. MD Chowdhury NOVOLOG FLEXPEN U-100 INSULIN 100 unit/mL (3 mL) insulin pen 2019-08-24 00:00:00 2019-12-01 00:00:00 No MD Chowdhury meloxicam (MOBIC) 7.5 mg tablet 2019-08-24 00:00:00 00:00:00 No Chronic pain TAKE 1 TABLET BY MOUTH DAILY NEEDED FOR MO DERATE PAIN MD Chowdhury insulin glargine (Basaglar KwikPen U-100 Insulin) 100 unit/mL (3 mL) insulin pen 2019-08-24 00:00:00 2019-09-01 00:00:00 No Long-term (current) use of insulin 4U Inject 4 Units under the skin every morning. 9 units on chemo days MD Chowdhury Folic Acid 2019-08-04 04:10:25 Yes Gene Benitez 1 tablet [facility] Aspirin 2019-08-04 04:10:25 Yes Gene Mejiayan 1 tablet [facility] Creon 2019-08-04 04:10:25 Yes Gene Benitez as directed [facility] Clonazepam 2019-08-04 04:10:25 Yes Gene Benitez 1 tablet [facility] Carisoprodol 2019-08-04 04:10:25 Yes Gene Benitez 1 tablet [facility] Famotidine 2019-08-04 04:10:25 Yes [facility]z 1 [facility] Xeloda 2019-08-04 04:10:25 Yes Gene Benitez as directed [facility] Metoprolol Tartrate 2019-08-04 04:10:25 Yes Gene Benitez 1 tablet [facility] Fish Oil 2019-08-04 04:10:25 Yes Gene Benitez 1 capsule [facility] Lisinopril 2019-08-04 04:10:25 Yes Gene Benitez 1 tablet [facility] metoprolol tartrate (LOPRESSOR) 25 mg tablet 2019-08-03 00:00:00 Yes TAKE 1 TABLET BY MOUTH TWICE A DAY MD Chowdhury meloxicam (Mobic) 7.5 mg tablet 2019-08-02 00:00:00 00:00:00 No Chronic pain 7.5mg Take 1 tablet (7.5 m g) by mouth daily as needed for moderate pain. MD Chowdhury oxyCODONE (ROXICODONE) 5 mg immediate release tablet 2019-07-26 00:00:00 2020-02-23 00:00:00 No Pancreatic cancer 5mg Take 1 tablet (5 mg) by mouth every 6 (six) hours as needed for moderate pain. MD Chowdhury oxyCODONE (ROXICODONE) 5 mg immediate release tablet 2019-07-26 00:00:00 2019-07-26 00:00:00 No Pancreatic cancer 5mg Take 1 tablet (5 mg) by mouth every 6 (six) hours as needed for moderate pain. MD Chowdhury azelastine (ASTELIN) 137 mcg/spray nasal spray 2019-07-14 00:00: 00 Yes USE 1 SPRAY NASALLY TWICE A DAY MD Chowdhury pancrelipase (CREON) 12,000 units-38,000 units-60,000 units capsule 2019-07-12 00:00:00 Yes Pancreatic cancer [id number] Ta ke 2 capsules (24,000 Units) by mouth 3 (three) times a day with meals. MD Chowdhury dexamethasone (DECADRON) 4 mg tablet 2019-07-12 00:00: 00 2019-11-10 00:00:00 No Pancreatic cancer 4mg Take 1 tab let (4 mg) by mouth as directed. Take 4mg tablet with breakfast on days 3, 4 and 5 of chemo cycle. MD Chowdhury blood-glucose transmitter jitendra 2019-07-07 00:00:00 2020-01-26 9 00:00:00 No Pancreatic cancer FOR CONTINUOUS GLUCOSE MONITORING MD Chowdhury flash glucose scanning reader (FreeStyle Curtis 14 Day [place] ) misc 2019-07-04 00:00:00 Yes Long-term (current) use of insulin 1{dev ice} 1 Device by miscellaneous route as needed (for checking blood suga). MD Chowdhury flash glucose sensor (FreeStyle Curtis 14 Day Sensor) kit 2019-07-04 00:00:00 Yes Long-term (current) use of insulin 1{device} 1 Device by miscellaneous route every 14 (fourteen) days. MD Gomes son benzonatate (TESSALON) 200 mg capsule 2019-06-20 00:00:00 Y es TAKE 1 CAPSULE BY MOUTH THREE TIMES A DAY FOR 5 DAYS MD Chowdhury azithromycin (ZITHROMAX) 250 mg tablet 2019-05-28 5 00:00:00 2019-11-10 00:00:00 No TAKE 2 TABLETS BY MOUTH TODAY, T HEN TAKE 1 TABLET DAILY FOR 4 DAYS MD Chowdhury CHOLECALCIFEROL 25 mcg (1,000 unit) tablet 2019-06-08 00:00:00 Yes TAKE 1 TABLET BY MOUTH EVERY DAY MD Bandar woody acetaminophen (TylenoL) 325 mg cap 2019-05-27 00:00:00 Yes MD Chowdhury dicyclomine (BENTYL) 20 mg tablet 2019-05-17 00:00:00 Yes Pancreatic cancer TAKE 1 TABLET(20 MG) BY MOUTH EVERY 6 HOURS NEEDED FOR ABDOMINAL CRAMPS MD Chowdhury cyclobenzaprine (FLEXERIL) 7.5 mg tablet 2019-04 00:00:00 2019-06-07 00:00:00 No TAKE 1 TABLET BY MOUTH EVERY 8 HOURS NEEDED FOR PAIN MD Chowdhury insulin aspart, niacinamide, 100 unit/mL (3 mL) inpn 2019-04-17 00:00:00 2019-08-24 00:00:00 No Long-term (current) use of insulin 5U Inject 5-9 Units under the skin daily. MD Chowdhury blood-glucose meter,continuous (DEXCOM G6 TURBINE MECHANIC) [facility] 2019-04-14 00:00:00 Yes Pancreatic cancer For continuous glucose monitoring [place] blood-glucose transmitter (DEXCOM G6 TRANSMITTER) jitendra 2019-04-14 00:00:00 2019-07-07 00:00:00 No Pancreatic cancer For continuous glucose monitoring [place] blood-glucose transmitter (DEXCOM G6 TRANSMITTER) jitendra 2019-04-14 00:00:00 2019-04-14 00:00:00 No Pancreatic cancer For continuous glucose monitoring MD Chowdhury blood-glucose meter,continuous (DEXCOM G6 TURBINE MECHANIC) [facility] 2019-04-14 00:00:00 2019-04-14 00:00:00 No Pancreatic cancer For continuous glucose monitoring MD Chowdhury pancrelipase (CREON) 12,000 units-38,000 units-60,000 units capsule 2019-04-13 00:00:00 2019-07-12 00:00:00 No Pancreatic cancer [id number] Take 2 capsules (24,000 Units) by mouth 3 (three) times a day with meals. MD Chowdhury blood-glucose sensor (DEXCOM G6 SENSOR) jitendra 01-06-12 00:00:00 2019-12-12 00:00:00 No Pancreatic cancer For continuous monito ring of glucose [place] blood-glucose transmitter (DEXCOM G6 TRANSMITTER) jitendra 2019-04-06 00:00:00 2019-04-14 00:00:00 No Pancreatic cancer For continuous glucose monitoring MD Chowdhury blood-glucose meter,continuous (DEXCOM G6 TURBINE MECHANIC) [facility] 2019-04-06 00:00:00 2019-04-14 00:00:00 No Pancreatic cancer For continuous glucose monitoring MD Chowdhury blood-glucose meter,continuous (DEXCOM G6 TURBINE MECHANIC) [facility] 2019-04-06 00:00:00 2019-04-06 00:00:00 No Pancreatic cancer For continuous glucose monitoring MD Chowdhury alcohol swabs (ALCOHOL PADS) [facility] 2019-04-05 00:00:00 Yes Type 2 diabetes mellitus, not otherwise specified Clean finger with swab prior to glucometer checks MD Chowdhury lactulose (CHRONULAC) 10 gram/15 mL solution 2019-04-05 00:0 0:00 Yes Slow transit constipation 10g Take 15 mL (10 g) b y mouth daily as needed for constipation. MD Chowdhury cyclobenzaprine (FLEXERIL) 10 mg tablet 00:00:00 2019-09-06 00:00:00 No TAKE 1 TABLET BY MOUTH THREE TI MES A DAY MD Chowdhury methylPREDNISolone (MEDROL DOSEPACK) 4 mg tablet 2019-03-14 00:00:00 2019-05-10 00:00:00 No TAKE 6 TABLETS ON DAY 1 DIRECTED ON PACKAGE AND DECREASE BY 1 TAB EACH DAY FOR A TOTAL OF 6 DAYS MD Chowdhury lidocaine-prilocaine (EMLA) 2.5-2.5% cream 2019-02-15 00:00: 00 Yes Encounter for adjustment and management of vascular access device Apply to Port-A-Cath area 30 to 45 minutes prior to port access as directed (topical anesthetic to the anterior chest only). MD Chowdhury Fish Oil 2019-01-31 04:10:19 Yes Gene Benitez 1 capsule Tremaine Wu Lisinopril 2019-01-31 04:10:19 Yes Gene Benitez 1 tablet Tremaine Wu glucagon, human recombinant, (glucagon) 1 mg injection 2019-01-03 00:00:00 Yes Long-term (current) use of insulin 1mg Inject 1 mg into the shoulder, thigh, or buttocks once for 1 dose. As needed for severe low blood sugar MD Chowdhury insulin detemir U-100 (LEVEMIR FLEXTOUCH U-100 INSULN) 100 unit/mL (3 mL) insulin pen 2019-01-03 00:00:00 2019-04-05 00:00:00 No Long-term (current) use of insulin 3U Inject 3 Units under the skin daily. MD [facility] capecitabine (XELODA) 500 mg tablet 2018-12-15 00:00:0 0 2019-07-25 00:00:00 No Pancreatic cancer 1 tabs PO QAM and 2 tabs PO QPM for 14 days, then off for 7 days. MD [facility] capecitabine (XELODA) 500 mg tablet 2018-11-07 00:00:0 0 2019-07-25 00:00:00 No Pancreatic cancer 1 tabs PO QAM and 2 tabs PO QPM for 14 days, then off for 7 days. MD [facility] pen needle, diabetic (BD ULTRA-FINE BETH PEN NEEDLE) 32 gaug e x 5/32" ndle 2018-09-26 00:00:00 2019-12-29 00:00:00 No Postprocedural hypoi nsulinemia USE 4 TIMES DAILY FOR INJECTION OF INSULIN MD [facility] insulin glargine (BASAGLAR KWIKPEN U-100 INSULIN) 100 unit/mL (3 mL) insulin pen 2018-08-19 00:00:00 2019-08-24 00:00:00 No Long-term (current) use of insulin 6U Inject 6 Units under the skin every morning. MD [facility] insulin aspart, niacinamide, (FIASP FLEX TOUCH U-100 INSULIN) 100 unit/mL (3 mL) inpn 2018-08-19 00:00:00 2019-04-17 00:00:00 No Long-term (current) use of insulin 2U Inject 2-8 Units under the skin 3 (three) times a day with meals. MD [facility] ondansetron (ZOFRAN ODT) 8 mg disintegrating tablet 08-05 00:00:00 Yes Pancreatic cancer 8mg Dissolve 1 tab let (8 mg) on the tongue every 8 (eight) hours as needed for nausea or vomiting. MD [facility]dh[facility] Metoprolol Tartrate 2018-07-22 04:10:06 Yes Gene Benitez 1 tablet [facility] Ibandronate Sodium 2018-07-01 05:10:53 Yes Gene Benitez 1 tablet [facility] lactulose (CHRONULAC) 10 gram/15 mL solution 201 12-26-20 00:00:00 2019-04-05 00:00:00 No Slow transit constipation 10g Take 15 mL (10 g) by mouth daily as needed for constipation. MD Chowdhury flash glucose scanning reader (FREESTYLE CURTIS 14 DAY READER ) [facility] 2018-05-09 00:00:00 Yes Long-term (current) use of insulin 1{dev ice} 1 Device by miscellaneous route as needed (for checking blood suga). MD Chowdhury flash glucose sensor (FREESTYLE CURTIS 14 DAY SENSOR) kit 2018-05-09 00:00:00 Yes Long-term (current) use of insulin 1{device} 1 Device by miscellaneous route every 14 (fourteen) days. MD Eliseo russ [facility] 2018-05-09 00:00:00 Yes Postprocedur al hypoinsulinemia Check blood sugar 4 times daily MD Eliseo peñaloza blood sugar diagnostic (glucose blood) strp 2018-05-09 00:00 :00 Yes Postprocedural hypoinsulinemia Check blood sugar 4 times d kenneth Chow[facility] pancrelipase (CREON) 12,000 units-38,000 units-60,000 units capsule 2018-05-05 00:00:00 2019-04-13 00:00:00 No Pancreatic cancer 34589X Take 2 capsules (24,000 Units) by mouth 3 (three) times a day with meals. MD Chowdhury dexamethasone (DECADRON) 4 mg tablet 2018-04-27 00:00: 00 2019-07-12 00:00:00 No Pancreatic cancer 4mg Take 1 tab let (4 mg) by mouth as directed. Take 4mg tablet with breakfast on days 3, 4 and 5 of chemo cycle. MD [facility]dh[facility] ONETOUCH DELICA LANCETS 33 gauge [facility] [place] 2018-02-07 00:00 :00 2019-05-10 00:00:00 No MD Chowdhury promethazine (PHENERGAN) 12.5 mg tablet 2018-01-13 00:00:00 Yes Pancreatic cancer 12.5mg Take 1 tablet (12.5 mg) by mouth every 8 (eight) hours as needed for nausea or vomiting. MD Chowdhury diphenoxylate-atropine (LOMOTIL) 2.5 mg-0.025 mg per tablet 2017-12-02 00:00:00 Yes Pancreatic cancer 1{tbl} Ta ke 1 tablet by mouth every 6 (six) hours as needed for diarrhea. Not to exceed 8 tablets per day MD Chowdhury dicyclomine (BENTYL) 20 mg tablet 2017-11-23 00:00:00 2019 00:00:00 No Pancreatic cancer 20mg Take 1 tablet (20 mg) by mouth every 6 (six) hours as needed (abdominal cramps). MD Chowdhury flash glucose scanning reader (FREESTYLE CURTIS READER) [facility] [place] 2017-08-12 00:00:00 Yes Long-term (current) use of insulin 1{dev ice} 1 Device by miscellaneous route once for 1 dose. MD [facility] flash glucose sensor (FREESTYLE CURTIS SENSOR) kit 2017-08-12 00:00:00 Yes Long-term (current) use of insulin 3{device} 3 Dev ices by miscellaneous route every 30 (thirty) days for [address] [facility] ketone blood test (PRECISION XTRA B-KETONE) strp 2017-07-29 00:00:00 Yes Long-term (current) use of insulin 1{strip} 1 str ip by miscellaneous route as needed (FOR UNCONTROLLED HIGH BLOOD SUGAR) for up to 100 days. MD Chowdhury glucagon, human recombinant, (glucagon) 1 mg injection 2017-07-29 00:00:00 Yes Long-term (current) use of insulin 1mg Inject 1 mg into the shoulder, thigh, or buttocks as needed (for hypoglycemia) for up to 1 dose. MD [facility] blood-glucose meter kit 2017-07-16 00:00:00 Yes Postprocedural hypoinsulinemia Check blood sugar as instructed. MD Chow[facility] Hydrochlorothiazide 2017-05-04 00:00:00 Yes Gene Benitez 1 tablet in the morning [facility] acetaminophen (TYLENOL) 500 mg tablet 2017-05-04 00:00 :00 2019-11-10 00:00:00 No Pancreatic cancer 500mg Take 1 tab let (500 mg) by mouth every 6 (six) hours as needed for mild pain. MD Monge on Hydrochlorothiazide 2017-04-28 00:00:00 Yes Gene Benitez 1 tablet in the [facility] clobetasol (TEMOVATE) 0.05% cream 2017-02-17 00:00:00 Ye s 1{application} Apply 1 application topically to affected area(s) as d irected. MD Chowdhury famotidine (PEPCID) 20 mg tablet 2016-12-04 00:00:00 2019-11 00:00:00 No 1{tbl} Take 1 tablet by mouth daily. MD Chowdhury lisinopril (PRINIVIL,ZESTRIL) 20 mg tablet 2016-11-30 00:00:00 Yes 1{tbl} Take 1 tablet by mouth twice daily. MD Chowdhury Lisinopril 2016-09-09 04:10:07 Yes Gene Benitez 1 tablet [facility] Famotidine 2016-09-09 04:10:07 Yes Gene Benitez 1 tablet [facility] Clonazepam 2016-09-09 04:10:07 Yes Gene Benitez 1 tablet [facility] Ibandronate Sodium 2016-09-09 04:10:07 Yes Gnee Benitez 1 tablet [facility] Aspirin 2016-09-09 04:10:07 Yes Gene Benitez 1 tablet [facility] Folic Acid 2016-09-09 04:10:07 Yes Gene Benitez 1 tablet [facility] Carisoprodol 2016-09-09 04:10:07 Yes Gene Benitez 1 tablet [facility] Metoprolol Tartrate 2016-09-09 04:10:07 Yes Gene Benitez 1 tablet [facility] clonazePAM (KlonoPIN) 1 mg tablet 2016-09-05 00:00:00 Yes 1{tbl} Take 1 tablet by mouth as needed. MD [facility]dh[facility] Amlodipine Besylate 2015 00:00:00 Yes Gene Benitez 1 tablet [facility] Amlodipine Besylate 2015 00:00:00 Yes Gene Benitez 1 tablet [facility] Diltiazem HCl ER 2015 00:00:00 No Gene Benitez 1 capsule [facility] Diltiazem HCl ER 2014-12-30 04:10:01 Yes Gene hill 1 capsule [facility] Aspirin 2014-12-30 04:10:01 Yes Gene Benitez 1 tablet [facility] Immunizations Ordered Immunization Name Filled Immunization Name Date Status Comments Source Meningococcal B, Omv 2017-03-02 00:00:00 Completed MD Chowdhury Hib (PRP-OMP) 2017-03-02 00:00:00 Completed MD [facility] Meningococcal Conjugate 2017-03-02 00:00:00 Completed MD Chowdhury Pneumococcal Conjugate 13-Valent 2017-03-02 00:00:00 Compl eted MD [facility] Vital Signs Vital Name Observation Time Observation Value Comments Source WEIGHT 2019-11-01 00:00:00 52 kg WEIGHT 2019-11-01 00:00:00 52 kg Body temperature 2020-01-15 17:09:[address] [facility] Systolic blood pressure 2020-01-15 15:31:22 133 mm[Hg] MD [facility] Diastolic blood pressure 2020-01-15 15:31:22 67 mm[Hg] MD Chow[facility] Heart rate 2020-01-15 15:31:22 68 /min MD Gomes anabela Respiratory rate 2020-01-15 15:31:22 18 /min MD Ave [facility] Body weight 2020-01-15 15:31:22 53.8 kg MD Gomes son BMI 2020-01-15 15:31:22 21.04 kg/m2 MD Gomes anabela Oxygen saturation in Arterial blood by Pulse oximetry 01-14 15:31:22 97 /min MD [facility] Body height 2019-12-13 21:39:00 159.9 cm MD Gomes son Weight 2019-08-03 19:15:00 [facility] Heart Rate 2019-08-03 19:15:00 [facility] Diastolic (mm Hg) 2019-08-03 19:15:00 [facility] Systolic (mm Hg) 2019-08-03 19:15:00 [facility] Weight 2019-01-30 19:45:00 [facility] Heart Rate 2019-01-30 19:45:00 [facility] Diastolic (mm Hg) 2019-01-30 19:45:00 [facility] Systolic (mm Hg) 2019-01-30 19:45:00 [facility] Weight 2018-07-20 20:15:00 [facility] Heart Rate 2018-07-20 20:15:00 [facility] Diastolic (mm Hg) 2018-07-20 20:15:00 [facility] Systolic (mm Hg) 2018-07-20 20:15:00 [facility] Weight 2018-06-29 20:30:00 [facility] Heart Rate 2018-06-29 20:30:00 [facility] Diastolic (mm Hg) 2018-06-29 20:30:00 [facility] Systolic (mm Hg) 2018-06-29 20:30:00 [facility] Weight 2018-05-16 17:45:00 [facility] Heart Rate 2018-05-16 17:45:00 [facility] Diastolic (mm Hg) 2018-05-16 17:45:00 [facility] Systolic (mm Hg) 2018-05-16 17:45:00 [facility] Weight 2017-04-22 19:45:00 [facility] Heart Rate 2017-04-22 19:45:00 [facility] Diastolic (mm Hg) 2017-04-22 19:45:00 [facility] Systolic (mm Hg) 2017-04-22 19:45:00 [facility] Weight 2016-09-08 14:45:00 [facility] Heart Rate 2016-09-08 14:45:00 [facility] Diastolic (mm Hg) 2016-09-08 14:45:00 [facility] Systolic (mm Hg) 2016-09-08 14:45:00 [facility] Weight 2016-07-21 16:00:00 [facility] Heart Rate 2016-07-21 16:00:00 [facility] Diastolic (mm Hg) 2016-07-21 16:00:00 [facility] Systolic (mm Hg) 2016-07-21 16:00:00 [facility] Weight 2016-01-16 19:30:00 [facility] Heart Rate 2016-01-16 19:30:00 [facility] Diastolic (mm Hg) 2016-01-16 19:30:00 [facility] Systolic (mm Hg) 2016-01-16 19:30:00 [facility] Weight 2015-07-10 20:15:00 [facility] Heart Rate 2015-07-10 20:15:00 [facility] Diastolic (mm Hg) 2015-07-10 20:15:00 [facility] Systolic (mm Hg) 2015-07-10 20:15:00 [facility] Weight 2015 20:40:00 [facility] Heart Rate 2015 20:40:00 [facility] Diastolic (mm Hg) 2015 20:40:00 [facility] Systolic (mm Hg) 2015 20:40:00 [facility] Weight 2014-12-24 20:00:00 [facility] Heart Rate 2014-12-24 20:00:00 [facility] Diastolic (mm Hg) 2014-12-24 20:00:00 [facility] Systolic (mm Hg) 2014-12-24 20:00:00 [facility] Procedures Procedure Date / Time Performed [facility]forming [facility] ALANINE AMINOTRANSFERASE 2020-02-21 15:58:00 Shantanu Bolden MD ASPARTATE AMINOTRANSFERASE 2020-02-21 15:58:00 Shantanu Bolden FREE THYROXINE 2020-02-21 15:58:00 Shantanu Bolden MD GLUCOSE, RANDOM 2020-02-21 15:58:00 Shantanu Bolden MD THYROID STIMULATING HORMONE 2020-02-21 15:58:00 Shantanu Bolden MD BLOOD UREA NITROGEN 2020-02-21 15:58:00 Shantanu Bolden MD Eliseo peñaloza LIPID PANEL 2020-02-21 15:58:00 Shantanu Bolden MD HEMOGLOBIN A1C 2020-02-21 15:58:00 Shantanu Bolden MD ELECTROLYTE PANEL 2020-02-21 15:58:00 Shantanu Bolden MD SERUM CREATININE 2020-02-21 15:58:00 Shantanu Bolden MD SERUM CREATININE 2020-02-21 15:58:00 Shantanu Bolden MD .GLOMERULAR FILTRATION RATE 2020-02-21 15:58:00 Shantanu Bolden MD COMPLETE BLOOD COUNT W/ DIFFERENTIAL 2020-01-25 15:46:00 Alix Steward MD COMPREHENSIVE METABOLIC PANEL 2020-01-25 15:46:00 Lena Steward MD LACTATE DEHYDROGENASE 2020-01-25 15:46:00 Alix Steward MD nderson MAGNESIUM LEVEL 2020-01-25 15:46:00 Alix Steward MD Results CBC 2020-01-25 15:46:00 Alix Steward MD MANUAL DIFFERENTIAL 2020-01-25 15:46:00 Alix Steward MD And erson GLUCOSE LEVEL 2020-01-25 15:46:00 Alix Steward MD BLOOD UREA NITROGEN 2020-01-25 15:46:00 Alix Steward MD And erson ELECTROLYTE PANEL 2020-01-25 15:46:00 Alix Steward MD Eliseojeremias peñaloza SERUM CREATININE 2020-01-25 15:46:00 Alix Steward MD Saleem on .GLOMERULAR FILTRATION RATE 2020-01-25 15:46:00 Alix Steward MD CALCIUM LEVEL TOTAL 2020-01-25 15:46:00 Alix Steward MD And erson ALBUMIN LEVEL 2020-01-25 15:46:00 Alix Steward MD ALKALINE PHOSPHATASE 2020-01-25 15:46:00 Alix Steward MD ALANINE AMINOTRANSFERASE 2020-01-25 15:46:00 Alix Steward ASPARTATE AMINOTRANSFERASE 2020-01-25 15:46:00 Alix Steward MD TOTAL PROTEIN 2020-01-25 15:46:00 Alix Steward MD FRACTIONATED BILIRUBIN 2020-01-25 15:46:00 Alix Steward MD HC COVID19 AUTOMATED PCR 2020-01-15 17:12:00 Kurt Morfin POC GLUCOSE SCREEN 2020-01-02 20:27:00 July Tai MD Eliseojeremias peñaloza CT CHEST ABDOMEN PELVIS W CONTRAST 2020-01-02 20:18:38 Heriberto Tai MD POC GLUCOSE SCREEN 2020-01-02 18:27:00 July Tai MD Eliseo son COMPLETE BLOOD COUNT W/ DIFFERENTIAL 2020-01-02 17:14:00 July Tai MD COMPREHENSIVE METABOLIC PANEL 2020-01-02 17:14:00 July Tai MD CANCER ANTIGEN 19-9 2020-01-02 17:14:00 July Tai MD Bandar rson Results CBC 2020-01-02 17:14:00 July Tai MD MANUAL DIFFERENTIAL 2020-01-02 17:14:00 July Tai MD Bandar rson GLUCOSE LEVEL 2020-01-02 17:14:00 July Tai MD BLOOD UREA NITROGEN 2020-01-02 17:14:00 July Tai MD Bandar rson ELECTROLYTE PANEL 2020-01-02 17:14:00 July Tai MD Saleem on SERUM CREATININE 2020-01-02 17:14:00 July Tai MD .GLOMERULAR FILTRATION RATE 2020-01-02 17:14:00 July Tai MD CALCIUM LEVEL TOTAL 2020-01-02 17:14:00 July Tai MD Bandar rson ALBUMIN LEVEL 2020-01-02 17:14:00 July Tai MD ALKALINE PHOSPHATASE 2020-01-02 17:14:00 July Tai MD And erson ALANINE AMINOTRANSFERASE 2020-01-02 17:14:00 July Tai MD ASPARTATE AMINOTRANSFERASE 2020-01-02 17:14:00 July Tai MD TOTAL PROTEIN 2020-01-02 17:14:00 July Tai MD FRACTIONATED BILIRUBIN 2020-01-02 17:14:00 July Tai MD nderson PAIN MANAGEMENT FLUOROSCOPY 2019-12-27 16:28:33 Timothy George MD OCT, RETINA - OU - BOTH EYES 2019-12-14 17:28:52 Supa Tai MD FUNDUS PHOTOS - OU - BOTH EYES 2019-12-14 17:28:47 Ben Tai MD ECHOCARDIOGRAM 2D COMPLETE 2019-12-14 16:15:19 Gi Domingo COMPLETE BLOOD COUNT W/ DIFFERENTIAL 2019-12-12 19:03:00 Gi Domingo MD COMPREHENSIVE METABOLIC PANEL 2019-12-12 19:03:00 Fouzia Domingo MD PHOSPHORUS LEVEL 2019-12-12 19:03:00 Gi Domingo MD MAGNESIUM LEVEL 2019-12-12 19:03:00 Gi Domingo MD URIC ACID 2019-12-12 19:03:00 Gi Domingo MD LACTATE DEHYDROGENASE 2019-12-12 19:03:00 Gi Domingo MD And erson AMYLASE LEVEL 2019-12-12 19:03:00 Gi Domingo MD LIPASE LEVEL 2019-12-12 19:03:00 Gi Domingo MD TROPONIN T 2019-12-12 19:03:00 Gi Domingo MD CREATINE KINASE 2019-12-12 19:03:00 Gi Domingo MD GAMMA GLUTAMYL TRANSFERASE 2019-12-12 19:03:00 Gi Domingo C REACTIVE PROTEIN 2019-12-12 19:03:00 Gi Domingoers on CREATINE KINASE ISOENZYMES 2019-12-12 19:03:00 Gi Domingo FREE THYROXINE 2019-12-12 19:03:00 Gi Domingo MD PROTHROMBIN TIME 2019-12-12 19:03:00 Gi Domingo MD PARTIAL THROMBOPLASTIN TIME 2019-12-12 19:03:00 Gi Domingo MD THYROID STIMULATING HORMONE 2019-12-12 19:03:00 Gi Domingo MD ADRENOCORTICOTROPIC HORMONE 2019-12-12 19:03:00 Gi Domingo MD URINALYSIS WITH MICROSCOPIC IF INDICATED 2019-12-12 19:03:00 Gi Maxwell MD Results CBC 2019-12-12 19:03:00 Gi Domingo MD MANUAL DIFFERENTIAL 2019-12-12 19:03:00 [facility] 2019-12-12 19:03:00 Gi Domingo MD BLOOD UREA NITROGEN 2019-12-12 19:03:00 Gi Domingo MD Eliseo peñaloza ELECTROLYTE PANEL 2019-12-12 19:03:00 Gi Domingo MD n SERUM CREATININE 2019-12-12 19:03:00 Gi Domingo MD .GLOMERULAR FILTRATION RATE 2019-12-12 19:03:00 Gi Domingo MD CALCIUM LEVEL TOTAL 2019-12-12 19:03:00 [facility] ALBUMIN LEVEL 2019-12-12 19:03:00 Gi Domingo MD ALKALINE PHOSPHATASE 2019-12-12 19:03:00 Gi Domingo MD rson ALANINE AMINOTRANSFERASE 2019-12-12 19:03:00 Gi Domingo MD ASPARTATE AMINOTRANSFERASE 2019-12-12 19:03:00 Gi Domingo TOTAL PROTEIN 2019-12-12 19:03:00 Gi Domingo MD FRACTIONATED BILIRUBIN 2019-12-12 19:03:00 Gi Domingo MD URINALYSIS MICROSCOPIC 2019-12-12 19:03:00 Gi Domingo MD CK ISOENZYME ELECTROPHORESIS 2019-12-12 19:03:00 Gi Domingo MD COMPLETE BLOOD COUNT W/ DIFFERENTIAL 2019-12-08 15:02:00 Gi Domingo MD COMPREHENSIVE METABOLIC PANEL 2019-12-08 15:02:00 Fouzia Domingo MD URIC ACID 2019-12-08 15:02:00 Gi Domingo MD MAGNESIUM LEVEL 2019-12-08 15:02:00 Gi Domingo MD LACTATE DEHYDROGENASE 2019-12-08 15:02:00 Gi Domingo MD And erson Results CBC 2019-12-08 15:02:00 Gi Domingo MD MANUAL DIFFERENTIAL 2019-12-08 15:02:00 Gi Domingo MD Eliseo peñaloza GLUCOSE LEVEL 2019-12-08 15:02:00 Gi Domingo MD BLOOD UREA NITROGEN 2019-12-08 15:02:00 Gi Domingo MD Eliseo peñaloza ELECTROLYTE PANEL 2019-12-08 15:02:00 Gi Domingo MD Krzysztof n SERUM CREATININE 2019-12-08 15:02:00 Gi Domingo MD .GLOMERULAR FILTRATION RATE 2019-12-08 15:02:00 Gi Domingo MD CALCIUM LEVEL TOTAL 2019-12-08 15:02:00 Gi Domingo MD Eliseo peñaloza ALBUMIN LEVEL 2019-12-08 15:02:00 Gi Domingo MD ALKALINE PHOSPHATASE 2019-12-08 15:02:00 Gi Domingoartemio kelloggon ALANINE AMINOTRANSFERASE 2019-12-08 15:02:00 Gi Domingo MD ASPARTATE AMINOTRANSFERASE 2019-12-08 15:02:00 Gi Domingo TOTAL PROTEIN 2019-12-08 15:02:00 Gi Domingo MD FRACTIONATED BILIRUBIN 2019-12-08 15:02:00 Gi Domingo MD derson CKMB 2019-12-04 21:12:00 Gi Domingo MD COMPLETE BLOOD COUNT W/ DIFFERENTIAL 2019-12-04 21:12:00 Gi Domingo MD COMPREHENSIVE METABOLIC PANEL 2019-12-04 21:12:00 Fouzia Domingo MD PROTHROMBIN TIME 2019-12-04 21:12:00 Gi Domingo MD PARTIAL THROMBOPLASTIN TIME 2019-12-04 21:12:00 Gi Domingo MD THYROID STIMULATING HORMONE 2019-12-04 21:12:00 Gi Domingo MD FREE THYROXINE 2019-12-04 21:12:00 Gi Domingo MD TROPONIN T 2019-12-04 21:12:00 Gi Domingo MD CREATINE KINASE 2019-12-04 21:12:00 Gi Domingo MD ALDOLASE 2019-12-04 21:12:00 Gi Domingo MD Results CBC 2019-12-04 21:12:00 Gi Domingo MD MANUAL DIFFERENTIAL 2019-12-04 21:12:00 Gi Domingo MD Eliseo peñaloza GLUCOSE LEVEL 2019-12-04 21:12:00 Gi Domingo MD BLOOD UREA NITROGEN 2019-12-04 21:12:00 Gi Domingo MD Eliseo peñaloza ELECTROLYTE PANEL 2019-12-04 21:12:00 Gi Domingo MD SERUM CREATININE 2019-12-04 21:12:00 Gi Domingo MD .GLOMERULAR FILTRATION RATE 2019-12-04 21:12:00 Gi Domingo MD CALCIUM LEVEL TOTAL 2019-12-04 21:12:00 Gi Domingo MD Eliseojeremias peñaloza ALBUMIN LEVEL 2019-12-04 21:12:00 Gi Domingo MD ALKALINE PHOSPHATASE 2019-12-04 21:12:00 Gi Domingoe rson ALANINE AMINOTRANSFERASE 2019-12-04 21:12:00 Gi Domingo MD ASPARTATE AMINOTRANSFERASE 2019-12-04 21:12:00 Gi Domingo TOTAL PROTEIN 2019-12-04 21:12:00 Gi Domingo MD FRACTIONATED BILIRUBIN 2019-12-04 21:12:00 Gi Domingo MD COMPLETE BLOOD COUNT W/ DIFFERENTIAL 2019-11-30 20:43:00 Hunter Urbina MD COMPREHENSIVE METABOLIC PANEL 2019-11-30 20:43:00 Ang Urbina MD PHOSPHORUS LEVEL 2019-11-30 20:43:00 Ang Urbina MD MAGNESIUM LEVEL 2019-11-30 20:43:00 Ang Urbina MD URIC ACID 2019-11-30 20:43:00 Ang Urbina MD LACTATE DEHYDROGENASE 2019-11-30 20:43:00 Ang Urbina AMYLASE LEVEL 2019-11-30 20:43:00 Ang Urbina MD LIPASE LEVEL 2019-11-30 20:43:00 Agn Urbina MD CREATINE KINASE 2019-11-30 20:43:00 Ang Urbina MD GAMMA GLUTAMYL TRANSFERASE 2019-11-30 20:43:00 Ang Urbina C REACTIVE PROTEIN 2019-11-30 20:43:00 Ang Urbina MD on CREATINE KINASE ISOENZYMES 2019-11-30 20:43:00 Ang Urbina Results CBC 2019-11-30 20:43:00 Ang Urbina MD MANUAL DIFFERENTIAL 2019-11-30 20:43:00 Ang Urbina MD GLUCOSE LEVEL 2019-11-30 20:43:00 Ang Urbina MD BLOOD UREA NITROGEN 2019-11-30 20:43:00 Ang Urbina MD Eliseojeremias peñaloza ELECTROLYTE PANEL 2019-11-30 20:43:00 Ang Urbina MD SERUM CREATININE 2019-11-30 20:43:00 Ang Urbina MD .GLOMERULAR FILTRATION RATE 2019-11-30 20:43:00 Ang Urbina MD CALCIUM LEVEL TOTAL 2019-11-30 20:43:00 Ang Urbina MD ALBUMIN LEVEL 2019-11-30 20:43:00 Ang Urbina MD ALKALINE PHOSPHATASE 2019-11-30 20:43:00 Ang Urbina MD ALANINE AMINOTRANSFERASE 2019-11-30 20:43:00 Ang Urbina MD ASPARTATE AMINOTRANSFERASE 2019-11-30 20:43:00 Ang Urbina TOTAL PROTEIN 2019-11-30 20:43:00 Ang Urbina MD FRACTIONATED BILIRUBIN 2019-11-30 20:43:00 Ang Urbina MD CK ISOENZYME ELECTROPHORESIS 2019-11-30 20:43:00 Ang Urbina MD US LEG VENOUS DOPPLER LEFT 2019-11-28 17:05:07 Lyn Howard COMPLETE BLOOD COUNT W/ DIFFERENTIAL 2019-11-24 14:50:00 Hunter Urbina MD COMPREHENSIVE METABOLIC PANEL 2019-11-24 14:50:00 Ang Urbina MD PHOSPHORUS LEVEL 2019-11-24 14:50:00 Ang Urbina MD MAGNESIUM LEVEL 2019-11-24 14:50:00 Ang Urbina MD URIC ACID 2019-11-24 14:50:00 Ang Urbina MD LACTATE DEHYDROGENASE 2019-11-24 14:50:00 Ang Urbina AMYLASE LEVEL 2019-11-24 14:50:00 Ang Urbina MD LIPASE LEVEL 2019-11-24 14:50:00 Ang Urbina MD CREATINE KINASE 2019-11-24 14:50:00 Ang Urbina MD GAMMA GLUTAMYL TRANSFERASE 2019-11-24 14:50:00 Ang Urbina C REACTIVE PROTEIN 2019-11-24 14:50:00 Ang Urbina MD on CREATINE KINASE ISOENZYMES 2019-11-24 14:50:00 Ang Urbina Results CBC 2019-11-24 14:50:00 Ang Urbina MD MANUAL DIFFERENTIAL 2019-11-24 14:50:00 Ang Urbina MD GLUCOSE LEVEL 2019-11-24 14:50:00 Ang Urbina MD BLOOD UREA NITROGEN 2019-11-24 14:50:00 Ang Urbina MD ELECTROLYTE PANEL 2019-11-24 14:50:00 Ang Urbina MD SERUM CREATININE 2019-11-24 14:50:00 Ang Urbina MD .GLOMERULAR FILTRATION RATE 2019-11-24 14:50:00 Ang Urbina MD CALCIUM LEVEL TOTAL 2019-11-24 14:50:00 Ang Urbina MD ALBUMIN LEVEL 2019-11-24 14:50:00 Ang Urbina MD ALKALINE PHOSPHATASE 2019-11-24 14:50:00 Ang Urbina MD on ALANINE AMINOTRANSFERASE 2019-11-24 14:50:00 Ang Urbina MD ASPARTATE AMINOTRANSFERASE 2019-11-24 14:50:00 Ang Urbina TOTAL PROTEIN 2019-11-24 14:50:00 Ang Urbina MD FRACTIONATED BILIRUBIN 2019-11-24 14:50:00 Ang Urbina MD CK ISOENZYME ELECTROPHORESIS 2019-11-24 14:50:00 Ang Urbina MD CTRC EKG, 12-LEAD 2019-11-19 00:00:00 Ang Urbina MD IR US GUIDED BIOPSY LIVER 2019-11-16 18:26:55 Gi Domingo MD PATHOLOGY BIOPSY INTERPRETATION 2019-11-16 18:01:00 Ruth Ann Domingo MD POC GLUCOSE SCREEN 2019-11-16 17:00:00 Gi Domingo MD on URINALYSIS WITH MICROSCOPIC IF INDICATED 2019-11-16 15:59:00 Gi Maxwell MD MYOGLOBIN, URINE 2019-11-16 15:59:00 Gi Domingo MD URINALYSIS MICROSCOPIC 2019-11-16 15:59:00 Gi Domingo MD COMPLETE BLOOD COUNT W/ DIFFERENTIAL 2019-11-16 15:56:00 Gi Domingo MD COMPREHENSIVE METABOLIC PANEL 2019-11-16 15:56:00 Fouzia Domingo MD THYROID STIMULATING HORMONE 2019-11-16 15:56:00 Gi Domingo MD FREE THYROXINE 2019-11-16 15:56:00 Gi Domingo MD ADRENOCORTICOTROPIC HORMONE 2019-11-16 15:56:00 Gi Domingo MD C REACTIVE PROTEIN 2019-11-16 15:56:00 Gi Domingo MD on CREATINE KINASE 2019-11-16 15:56:00 Gi Domingo MD GAMMA GLUTAMYL TRANSFERASE 2019-11-16 15:56:00 Gi Domingo AMYLASE LEVEL 2019-11-16 15:56:00 Gi Domingo MD PROTHROMBIN TIME 2019-11-16 15:56:00 Gi Domingo MD PARTIAL THROMBOPLASTIN TIME 2019-11-16 15:56:00 Gi Domingo MD URIC ACID 2019-11-16 15:56:00 Gi Domingo MD MAGNESIUM LEVEL 2019-11-16 15:56:00 Gi Domingo MD PHOSPHORUS LEVEL 2019-11-16 15:56:00 Gi Domingo MD TROPONIN T 2019-11-16 15:56:00 Gi Domingo MD CKMB 2019-11-16 15:56:00 Gi Domingo MD LACTATE DEHYDROGENASE 2019-11-16 15:56:00 Gi Domingo erson LIPASE LEVEL 2019-11-16 15:56:00 Gi Domingo MD CANCER ANTIGEN 19-9 2019-11-16 15:56:00 Gi Domingo MD [facility] CARCINOEMBRYONIC ANTIGEN 2019-11-16 15:56:00 Gi Domingo MD Results CBC 2019-11-16 15:56:00 Gi Domingo MD MANUAL DIFFERENTIAL 2019-11-16 15:56:00 Gi Domingo MD GLUCOSE LEVEL 2019-11-16 15:56:00 Gi Domingo MD BLOOD UREA NITROGEN 2019-11-16 15:56:00 Gi Domingo MD ELECTROLYTE PANEL 2019-11-16 15:56:00 Gi Domingoerso n SERUM CREATININE 2019-11-16 15:56:00 Gi Domingo MD .GLOMERULAR FILTRATION RATE 2019-11-16 15:56:00 Gi Domingo MD CALCIUM LEVEL TOTAL 2019-11-16 15:56:00 Gi Domingo MD Eliseo son ALBUMIN LEVEL 2019-11-16 15:56:00 Gi Domingo MD ALKALINE PHOSPHATASE 2019-11-16 15:56:00 Gi Domingo MD rson ALANINE AMINOTRANSFERASE 2019-11-16 15:56:00 Gi Domingo MD ASPARTATE AMINOTRANSFERASE 2019-11-16 15:56:00 Gi Domingo TOTAL PROTEIN 2019-11-16 15:56:00 Gi Domingo MD FRACTIONATED BILIRUBIN 2019-11-16 15:56:00 Gi Domingo MDson ECHOCARDIOGRAM 2D COMPLETE 2019-11-16 15:19:41 Gi Domingo COMPLETE BLOOD COUNT W/ DIFFERENTIAL 2019-11-09 17:45:00 Gi Domingo MD COMPREHENSIVE METABOLIC PANEL 2019-11-09 17:45:00 Fouzia Domingo MD Results CBC 2019-11-09 17:45:00 Gi Domingo MD MANUAL DIFFERENTIAL 2019-11-09 17:45:00 Gi Domingo MD Eliseo peñaloza GLUCOSE LEVEL 2019-11-09 17:45:00 Gi Domingo MD BLOOD UREA NITROGEN 2019-11-09 17:45:00 Gi Domingo MD Eliseo son ELECTROLYTE PANEL 2019-11-09 17:45:00 Gi Domingo MD Biancanancyo n SERUM CREATININE 2019-11-09 17:45:00 Gi Domingo MD .GLOMERULAR FILTRATION RATE 2019-11-09 17:45:00 Gi Domingo MD CALCIUM LEVEL TOTAL 2019-11-09 17:45:00 Gi Domingo MD Eliseo son ALBUMIN LEVEL 2019-11-09 17:45:00 Gi Domingo MD ALKALINE PHOSPHATASE 2019-11-09 17:45:00 Gi Domingo MD rson ALANINE AMINOTRANSFERASE 2019-11-09 17:45:00 Gi Domingo MD ASPARTATE AMINOTRANSFERASE 2019-11-09 17:45:00 Gi Domingo TOTAL PROTEIN 2019-11-09 17:45:00 Gi Domingo MD FRACTIONATED BILIRUBIN 2019-11-09 17:45:00 Gi Domingo MD MRI PELVIS W WO CONTRAST 2019-11-03 21:31:00 Ang Urbina MD FUNDUS PHOTOS - OU - BOTH EYES 2019-11-02 14:15:45 Ben Tai MD OCT, RETINA - OU - BOTH EYES 2019-11-02 14:15:39 Supa Tai MD AMYLASE LEVEL 2019-11-01 17:15:00 Ang Urbina MD CREATINE KINASE 2019-11-01 17:15:00 Ang Urbina MD FREE T3 2019-11-01 17:15:00 Ang Urbina MD FREE THYROXINE 2019-11-01 17:15:00 Ang Urbina MD HEPATITIS B SURFACE ANTIBODY, SERUM 2019-11-01 17:15:00 Heriberto Urbina MD HEPATITIS B CORE ANTIBODY 2019-11-01 17:15:00 Ang Urbina MD HEPATITIS C VIRUS ANTIBODY 2019-11-01 17:15:00 Ang Urbina LIPASE LEVEL 2019-11-01 17:15:00 Ang Urbina MD PARTIAL THROMBOPLASTIN TIME 2019-11-01 17:15:00 Ang Urbina MD PROTHROMBIN TIME 2019-11-01 17:15:00 Ang Urbina MD TROPONIN T 2019-11-01 17:15:00 Ang Urbina MD THYROID STIMULATING HORMONE 2019-11-01 17:15:00 Ang Urbina MD URINALYSIS WITH MICROSCOPIC IF INDICATED 2019-11-01 17:15:00 Clemons Ang henrandez MD URINALYSIS MICROSCOPIC 2019-11-01 17:15:00 Ang Urbina MD TMP HBCAB INTERP 2019-11-01 17:15:00 Ang Urbina MD TMP HBSAG INTERP 2019-11-01 17:15:00 Ang Urbina MD CANCER ANTIGEN 19-9 2019-11-01 15:15:00 Ang Urbina MD son CARCINOEMBRYONIC ANTIGEN 2019-11-01 15:15:00 Ang Urbina MD COMPLETE BLOOD COUNT W/ DIFFERENTIAL 2019-11-01 15:15:00 Hunter Urbina MD COMPREHENSIVE METABOLIC PANEL 2019-11-01 15:15:00 Ang Urbina MD LACTATE DEHYDROGENASE 2019-11-01 15:15:00 Ang Urbina MAGNESIUM LEVEL 2019-11-01 15:15:00 Ang Urbina MD PHOSPHORUS LEVEL 2019-11-01 15:15:00 Ang Urbina MD Results CBC 2019-11-01 15:15:00 Ang Urbina MD MANUAL DIFFERENTIAL 2019-11-01 15:15:00 Ang Urbina MD GLUCOSE LEVEL 2019-11-01 15:15:00 Ang Urbina MD BLOOD UREA NITROGEN 2019-11-01 15:15:00 Ang Urbina MD [facility] ELECTROLYTE PANEL 2019-11-01 15:15:00 Ang Urbina MD SERUM CREATININE 2019-11-01 15:15:00 Ang Urbina MD .GLOMERULAR FILTRATION RATE 2019-11-01 15:15:00 Ang Urbina MD CALCIUM LEVEL TOTAL 2019-11-01 15:15:00 Ang Urbina MD Leiseo [facility] ALBUMIN LEVEL 2019-11-01 15:15:00 Ang Urbina MD ALKALINE PHOSPHATASE 2019-11-01 15:15:00 Ang Urbina MD rs ALANINE AMINOTRANSFERASE 2019-11-01 15:15:00 Ang Urbina MD ASPARTATE AMINOTRANSFERASE 2019-11-01 15:15:00 Ang Urbina TOTAL PROTEIN 2019-11-01 15:15:00 Ang Urbina MD FRACTIONATED BILIRUBIN 2019-11-01 15:15:00 Ang Urbina MD derson EKG, 12-LEAD (SCHEDULED) 2019-11-01 00:00:[address] CHEST W CONTRAST 2019-10-26 23:13:49 [facility] W WO CONTRAST 2019-10-26 23:09:00 July Tai COMPLETE BLOOD COUNT W/ DIFFERENTIAL 2019-10-17 14:59:00 July Tai MD COMPREHENSIVE METABOLIC PANEL 2019-10-17 14:59:00 July Tai MD Results CBC 2019-10-17 14:59:00 July Tai MD MANUAL DIFFERENTIAL 2019-10-17 14:59:00 July Tai MD rson GLUCOSE LEVEL 2019-10-17 14:59:00 July Tai MD BLOOD UREA NITROGEN 2019-10-17 14:59:00 July Tai MD Bandar rson ELECTROLYTE PANEL 2019-10-17 14:59:00 July Tai MD on SERUM CREATININE 2019-10-17 14:59:00 July Tai MD Andnancyo n .GLOMERULAR FILTRATION RATE 2019-10-17 14:59:00 July Tai MD CALCIUM LEVEL TOTAL 2019-10-17 14:59:00 July Tai MD Bandar rson ALBUMIN LEVEL 2019-10-17 14:59:00 July Tai MD ALKALINE PHOSPHATASE 2019-10-17 14:59:00 July Tai MD And erson ALANINE AMINOTRANSFERASE 2019-10-17 14:59:00 July Tai MD ASPARTATE AMINOTRANSFERASE 2019-10-17 14:59:00 July Tai MD TOTAL PROTEIN 2019-10-17 14:59:00 July Tai MD FRACTIONATED BILIRUBIN 2019-10-17 14:59:00 July Tai MD nderson COMPREHENSIVE METABOLIC PANEL 2019-10-12 17:30:00 July Tai MD COMPLETE BLOOD COUNT W/ DIFFERENTIAL 2019-10-12 17:30:00 July Tai MD GLUCOSE LEVEL 2019-10-12 17:30:00 July Tai MD ELECTROLYTE PANEL 2019-10-12 17:30:00 July Tai MD on SERUM CREATININE 2019-10-12 17:30:00 July Tai MD Andnancyo n IsaakGLOMERULAR FILTRATION RATE 2019-10-12 17:30:00 July Tai MD CALCIUM LEVEL TOTAL 2019-10-12 17:30:00 July Tai MD Bandar rson ALBUMIN LEVEL 2019-10-12 17:30:00 July Tai MD ALKALINE PHOSPHATASE 2019-10-12 17:30:00 July Tai MD And erson ALANINE AMINOTRANSFERASE 2019-10-12 17:30:00 July Tai MD ASPARTATE AMINOTRANSFERASE 2019-10-12 17:30:00 July Tai MD TOTAL PROTEIN 2019-10-12 17:30:00 July Tai MD FRACTIONATED BILIRUBIN 2019-10-12 17:30:00 July Tai MD nderson Results CBC 2019-10-12 17:30:00 July Tai MD MANUAL DIFFERENTIAL 2019-10-12 17:30:00 July Tai MD Bandar rson BLOOD UREA NITROGEN 2019-10-12 17:30:00 July Tai MD Bandar rson POC GLUCOSE SCREEN 2019-10-10 15:21:00 Deepak Caicedo MD Bandar rson CT CHEST ABDOMEN PELVIS W CONTRAST 2019-10-10 15:15:22 Heriberto Tai MD COMPLETE BLOOD COUNT W/ DIFFERENTIAL 2019-10-05 19:07:00 Amna Fernandez MD COMPREHENSIVE METABOLIC PANEL 2019-10-05 19:07:00 Amna Fernandez MD CARCINOEMBRYONIC ANTIGEN 2019-10-05 19:07:00 Amna Fernandez MD CANCER ANTIGEN 19-9 2019-10-05 19:07:00 Amna Fernandez MD Bandar rson Results CBC 2019-10-05 19:07:00 Amna Fernandez MD MANUAL DIFFERENTIAL 2019-10-05 19:07:00 Amna Fernandez MD Bandar rson GLUCOSE LEVEL 2019-10-05 19:07:00 Amna Fernandez MD BLOOD UREA NITROGEN 2019-10-05 19:07:00 Amna Fernandez MD Bandar rson ELECTROLYTE PANEL 2019-10-05 19:07:00 Amna Fernandez MD Saleem on SERUM CREATININE 2019-10-05 19:07:00 Amna Fernandez MD Anderso n .GLOMERULAR FILTRATION RATE 2019-10-05 19:07:00 Amna Fernandez MD CALCIUM LEVEL TOTAL 2019-10-05 19:07:00 Amna Fernandez MD Bandar rson ALBUMIN LEVEL 2019-10-05 19:07:00 Amna Fernandez MD ALKALINE PHOSPHATASE 2019-10-05 19:07:00 Amna Fernandez MD And erson ALANINE AMINOTRANSFERASE 2019-10-05 19:07:00 Amna Fernandez MD ASPARTATE AMINOTRANSFERASE 2019-10-05 19:07:00 Amna Fernandez MD TOTAL PROTEIN 2019-10-05 19:07:00 Amna Fernandez MD FRACTIONATED BILIRUBIN 2019-10-05 19:07:00 Amna Fernandez MD nderson COMPLETE BLOOD COUNT W/ DIFFERENTIAL 2019-09-19 17:33:00 Ricardo Lynch MD COMPREHENSIVE METABOLIC PANEL 2019-09-19 17:33:00 July Tai MD CARCINOEMBRYONIC ANTIGEN 2019-09-19 17:33:00 July Tai MD CANCER ANTIGEN 19-9 2019-09-19 17:33:00 July Tai MD Bandar rson Results CBC 2019-09-19 17:33:00 Chasity Lynch MD Bandar rson MANUAL DIFFERENTIAL 2019-09-19 17:33:00 Chasity Lynch MD GLUCOSE LEVEL 2019-09-19 17:33:00 July Tai MD BLOOD UREA NITROGEN 2019-09-19 17:33:00 July Tai MD Bandar rson ELECTROLYTE PANEL 2019-09-19 17:33:00 July Tai MD Saleem on SERUM CREATININE 2019-09-19 17:33:00 July Tai MD Andhector MulliganGLOMERULAR FILTRATION RATE 2019-09-19 17:33:00 July Tai MD CALCIUM LEVEL TOTAL 2019-09-19 17:33:00 July Tai MD Bandar rson ALBUMIN LEVEL 2019-09-19 17:33:00 July Tai MD ALKALINE PHOSPHATASE 2019-09-19 17:33:00 July Tai MD And erson ALANINE AMINOTRANSFERASE 2019-09-19 17:33:00 July Tai MD ASPARTATE AMINOTRANSFERASE 2019-09-19 17:33:00 July Tai MD TOTAL PROTEIN 2019-09-19 17:33:00 July Tai MD FRACTIONATED BILIRUBIN 2019-09-19 17:33:00 July Tai MD nderson COMPLETE BLOOD COUNT W/ DIFFERENTIAL 2019-09-05 20:15:00 July Tai MD Results CBC 2019-09-05 20:15:00 July Tai MD MANUAL DIFFERENTIAL 2019-09-05 20:15:00 July Tai MD Bandar rson ALANINE AMINOTRANSFERASE 2019-08-22 15:02:00 LavShantanu solorzano MD ASPARTATE AMINOTRANSFERASE 2019-08-22 15:02:00 Shantanu Bolden FREE THYROXINE 2019-08-22 15:02:00 WaltisShantanu MD GLUCOSE, RANDOM 2019-08-22 15:02:00 LavisShantanu MD THYROID STIMULATING HORMONE 2019-08-22 15:02:00 LavisShantanu MD BLOOD UREA NITROGEN 2019-08-22 15:02:00 WaltisShantanu MD son LIPID PANEL 2019-08-22 15:02:00 LavisShantanu MD HEMOGLOBIN A1C 2019-08-22 15:02:00 Shantanu Bolden MD ELECTROLYTE PANEL 2019-08-22 15:02:00 LavisShantanu MD n SERUM CREATININE 2019-08-22 15:02:00 Shantanu Bolden MD COMPLETE BLOOD COUNT W/ DIFFERENTIAL 2019-08-22 15:02:00 July Tai MD COMPREHENSIVE METABOLIC PANEL 2019-08-22 15:02:00 July Tai MD SERUM CREATININE 2019-08-22 15:02:00 Shantanu Bolden MD .GLOMERULAR FILTRATION RATE 2019-08-22 15:02:00 Shantanu Bolden MD CALCIUM LEVEL TOTAL 2019-08-22 15:02:00 July Tai MD Bandar rson ALBUMIN LEVEL 2019-08-22 15:02:00 July Tai MD ALKALINE PHOSPHATASE 2019-08-22 15:02:00 July Tai MD And erson TOTAL PROTEIN 2019-08-22 15:02:00 July Tai MD FRACTIONATED BILIRUBIN 2019-08-22 15:02:00 July Tai MD nderson Results CBC 2019-08-22 15:02:00 July Tai MD MANUAL DIFFERENTIAL 2019-08-22 15:02:00 July Tai MD Bandar rson COMPLETE BLOOD COUNT W/ DIFFERENTIAL 2019-08-09 13:23:00 July Tai MD COMPREHENSIVE METABOLIC PANEL 2019-08-09 13:23:00 July Tai MD LACTATE DEHYDROGENASE 2019-08-09 13:23:00 July Tai MD derson MAGNESIUM LEVEL 2019-08-09 13:23:00 July Tai MD PHOSPHORUS LEVEL 2019-08-09 13:23:00 July Tai MD Anderso n CANCER ANTIGEN 19-9 2019-08-09 13:23:00 July Tai MD Bandar rson Results CBC 2019-08-09 13:23:00 July Tai MD MANUAL DIFFERENTIAL 2019-08-09 13:23:00 July Tai MD Bandar rson GLUCOSE LEVEL 2019-08-09 13:23:00 July Tai MD BLOOD UREA NITROGEN 2019-08-09 13:23:00 July Tai MD Bandar rson ELECTROLYTE PANEL 2019-08-09 13:23:00 July Tai MD Saleem on SERUM CREATININE 2019-08-09 13:23:00 July Tai MD Anderso n .GLOMERULAR FILTRATION RATE 2019-08-09 13:23:00 July Tai MD CALCIUM LEVEL TOTAL 2019-08-09 13:23:00 July Tai MD Bandar rson ALBUMIN LEVEL 2019-08-09 13:23:00 July Tai MD ALKALINE PHOSPHATASE 2019-08-09 13:23:00 July Tai MD And erson ALANINE AMINOTRANSFERASE 2019-08-09 13:23:00 July Tai MD ASPARTATE AMINOTRANSFERASE 2019-08-09 13:23:00 July Tai MD TOTAL PROTEIN 2019-08-09 13:23:00 July Tai MD FRACTIONATED BILIRUBIN 2019-08-09 13:23:00 July Tai MD nderson CONTROLLED SUBSTANCE MONITORING PANEL, URINE 2019-08-02 18:0 5:00 Micki Rodriguez MD POC URINE DRUG SCREEN PANEL, QUALITATIVE 2019-08-02 18:05:00 Micki Rodriguez MD POC GLUCOSE SCREEN 2019-07-31 16:05:00 Provider, Unknown MD Portillo rsmarcia CT CHEST ABDOMEN PELVIS W CONTRAST 2019-07-31 16:01:44 Heriberto Tai MD POC CREATININE 2019-07-31 15:00:00 Provider, Deepak hewitt VITAMIN B12 LEVEL 2019-07-26 15:00:00 Malika Cid MD on CANCER ANTIGEN 19-9 2019-07-26 15:00:00 July Tai MD Bandar rson URINE CULTURE 2019-07-25 20:40:00 Malika Cid MD URINALYSIS WITH MICROSCOPIC IF INDICATED 2019-07-25 20:26:00 Malika Rodriguez MD COMPLETE BLOOD COUNT W/ DIFFERENTIAL 2019-07-25 18:43:00 July Tai MD Results CBC 2019-07-25 18:43:00 July Tai MD MANUAL DIFFERENTIAL 2019-07-25 18:43:00 July Tai MD Bandar rson COMPLETE BLOOD COUNT W/ DIFFERENTIAL 2019-07-12 13:52:00 Amna Fernandez MD Results CBC 2019-07-12 13:52:00 Amna Fernandez MD MANUAL DIFFERENTIAL 2019-07-12 13:52:00 Amna Fernandez MD Bandar rson COMPLETE BLOOD COUNT W/ DIFFERENTIAL 2019-06-27 15:35:00 July Tai MD COMPREHENSIVE METABOLIC PANEL 2019-06-27 15:35:00 July Tai MD Results CBC 2019-06-27 15:35:00 July Tai MD MANUAL DIFFERENTIAL 2019-06-27 15:35:00 July Tai MD Bandar rson GLUCOSE LEVEL 2019-06-27 15:35:00 July Tai MD BLOOD UREA NITROGEN 2019-06-27 15:35:00 July Tai MD Bandar rson ELECTROLYTE PANEL 2019-06-27 15:35:00 July Tai MD on SERUM CREATININE 2019-06-27 15:35:00 July Tai MD .GLOMERULAR FILTRATION RATE 2019-06-27 15:35:00 July Tai MD CALCIUM LEVEL TOTAL 2019-06-27 15:35:00 July Tai MD Bandar rson ALBUMIN LEVEL 2019-06-27 15:35:00 July Tai MD ALKALINE PHOSPHATASE 2019-06-27 15:35:00 July Tai MD And erson ALANINE AMINOTRANSFERASE 2019-06-27 15:35:00 July Tai MD ASPARTATE AMINOTRANSFERASE 2019-06-27 15:35:00 July Tai MD TOTAL PROTEIN 2019-06-27 15:35:00 July Tai MD FRACTIONATED BILIRUBIN 2019-06-27 15:35:00 July Tai MD nderson COMPLETE BLOOD COUNT W/ DIFFERENTIAL 2019-06-15 13:19:00 Ly, Aishwarya Chowdhury Results CBC 2019-06-15 13:19:00 Ly, Aishwarya Chowdhury MANUAL DIFFERENTIAL 2019-06-15 13:19:00 Ly, Aishwarya Gomes son SCAN GENETIC TESTING RESULTS 2019-06-07 00:00:00 System, Provide r Not In MD Chowdhury POC GLUCOSE SCREEN 2019-06-06 17:51:00 Provider, Deepak Portillo rsmarcia CT CHEST ABDOMEN PELVIS W CONTRAST 2019-06-06 17:38:02 Austin Gonsalves MD COMPLETE BLOOD COUNT W/ DIFFERENTIAL 2019-06-06 15:45:00 Austin Alex MD COMPREHENSIVE METABOLIC PANEL 2019-06-06 15:45:00 Luther Gonsalves MD PHOSPHORUS LEVEL 2019-06-06 15:45:00 Austin Gonsalves MD MAGNESIUM LEVEL 2019-06-06 15:45:00 Austin Gonsalves MD CANCER ANTIGEN 19-9 2019-06-06 15:45:00 Austin Gonsalves MD Eliseo son CARCINOEMBRYONIC ANTIGEN 2019-06-06 15:45:00 Austin Gonsalves MD Results CBC 2019-06-06 15:45:00 Austin Gonsalves MD MANUAL DIFFERENTIAL 2019-06-06 15:45:00 Austin Gonsalves MD Eliseo son GLUCOSE LEVEL 2019-06-06 15:45:00 Austin Gonsalves MD BLOOD UREA NITROGEN 2019-06-06 15:45:00 Austin Gonsalves MD [facility] ELECTROLYTE PANEL 2019-06-06 15:45:00 Austin Gonsalves MDo marcelina SERUM CREATININE 2019-06-06 15:45:00 Austin Gonsalves MD .GLOMERULAR FILTRATION RATE 2019-06-06 15:45:00 Austin Gonsalves MD CALCIUM LEVEL TOTAL 2019-06-06 15:45:00 [facility] ALB[facility] 2019-06-06 15:45:00 Austin Gonsalves MD ALKALINE PHOSPHATASE 2019-06-06 15:45:00 Austin Gonsalvese rson ALANINE AMINOTRANSFERASE 2019-06-06 15:45:00 Austin Gonsalves MD ASPARTATE AMINOTRANSFERASE 2019-06-06 15:45:00 Austin Gonsalves TOTAL PROTEIN 2019-06-06 15:45:00 Austin Gonsalves MD FRACTIONATED BILIRUBIN 2019-06-06 15:45:00 Austin Gonsalves MD COMPLETE BLOOD COUNT W/ DIFFERENTIAL 2019-05-25 14:46:00 Austin Alex MD COMPREHENSIVE METABOLIC PANEL 2019-05-25 14:46:00 Luther Gonsalves MD Results CBC 2019-05-25 14:46:00 Austin Gonsalves MD MANUAL DIFFERENTIAL 2019-05-25 14:46:00 Austin Gonsalves MD Eliseo [facility] GLUCOSE LEVEL 2019-05-25 14:46:00 Austin Gonsalves MD BLOOD UREA NITROGEN 2019-05-25 14:46:00 Austin Gonsalves MD Eliseo [facility] ELECTROLYTE PANEL 2019-05-25 14:46:00 Austin Gonsalves MD SERUM CREATININE 2019-05-25 14:46:00 Austin Gonsalves MD .GLOMERULAR FILTRATION RATE 2019-05-25 14:46:00 Austin Gonsalves MD CALCIUM LEVEL TOTAL 2019-05-25 14:46:00 Austin Gonsalves MD Eliseo [facility] ALBUMIN LEVEL 2019-05-25 14:46:00 Austin Gonsalves MD ALKALINE PHOSPHATASE 2019-05-25 14:46:00 Austin Gonsalves MD Bandar rson ALANINE AMINOTRANSFERASE 2019-05-25 14:46:00 Austin Gonsalves MD ASPARTATE AMINOTRANSFERASE 2019-05-25 14:46:00 Austin Gonsalves TOTAL PROTEIN 2019-05-25 14:46:00 Austin Gonsalves MD FRACTIONATED BILIRUBIN 2019-05-25 14:46:00 Austin Gonsalves MD COMPLETE BLOOD COUNT W/ DIFFERENTIAL 2019-05-10 15:47:00 Ly, Aishwarya Chowdhury COMPREHENSIVE METABOLIC PANEL 2019-05-10 15:47:00 Ly, Aishwarya Chowdhury LACTATE DEHYDROGENASE 2019-05-10 15:47:00 Ly, Aishwarya Medley MAGNESIUM LEVEL 2019-05-10 15:47:00 Ly, Aishwarya Chowdhury PHOSPHORUS LEVEL 2019-05-10 15:47:00 Ly, Aishwarya Chowdhury Results CBC 2019-05-10 15:47:00 Ly, Aishwarya Chowdhury MANUAL DIFFERENTIAL 2019-05-10 15:47:00 Ly, Aishwarya peñaloza GLUCOSE LEVEL 2019-05-10 15:47:00 Ly, Aishwarya Chowdhury BLOOD UREA NITROGEN 2019-05-10 15:47:00 Ly, Aishwarya LYN Eliseojeremias peñaloza ELECTROLYTE PANEL 2019-05-10 15:47:00 Ly, Aishwarya Mongeo n SERUM CREATININE 2019-05-10 15:47:00 Ly, Aishwarya Chowdhury .GLOMERULAR FILTRATION RATE 2019-05-10 15:47:00 Ly, Aishwarya Chowdhury CALCIUM LEVEL TOTAL 2019-05-10 15:47:00 Ly, Aishwarya LYN Eliseo son ALBUMIN LEVEL 2019-05-10 15:47:00 Ly, Aishwarya Chowdhury ALKALINE PHOSPHATASE 2019-05-10 15:47:00 Ly, Aishwarya woody ALANINE AMINOTRANSFERASE 2019-05-10 15:47:00 Ly, Aishwarya Chowdhury ASPARTATE AMINOTRANSFERASE 2019-05-10 15:47:00 Ly, Aishwarya Chowdhury TOTAL PROTEIN 2019-05-10 15:47:00 Ly, Aishwarya Chowdhury FRACTIONATED BILIRUBIN 2019-05-10 15:47:00 Ly, Aishwarya subramanian COMPLETE BLOOD COUNT W/ DIFFERENTIAL 2019-04-27 18:42:00 Austin Alex MD Results CBC 2019-04-27 18:42:00 Austin Gonsalves MD MANUAL DIFFERENTIAL 2019-04-27 18:42:00 Austin Gonsalves MD Elsieo son CT CHEST ABDOMEN PELVIS W CONTRAST PANCREAS 2019-04-15 18:59:10 Aishwarya Ly MD COMPLETE BLOOD COUNT W/ DIFFERENTIAL 2019-04-15 16:33:00 Austin Alex MD CANCER ANTIGEN 19-9 2019-04-15 16:33:00 Aishwarya Ly MD Eliseo peñaloza COMPREHENSIVE METABOLIC PANEL 2019-04-15 16:33:00 Aishwarya Ly MD CARCINOEMBRYONIC ANTIGEN 2019-04-15 16:33:00 Aishwarya Ly MD LACTATE DEHYDROGENASE 2019-04-15 16:33:00 Aishwarya Ly MAGNESIUM LEVEL 2019-04-15 16:33:00 Aishwarya Ly MD PHOSPHORUS LEVEL 2019-04-15 16:33:00 Aishwarya Ly MD HEMOGLOBIN A1C 2019-04-15 16:33:00 Aishwarya Ly MD Results CBC 2019-04-15 16:33:00 Austin Gonsalves MD MANUAL DIFFERENTIAL 2019-04-15 16:33:00 Austin Gonsalves MD [facility] GLUCOSE LEVEL 2019-04-15 16:33:00 Aishwarya Ly MD BLOOD UREA NITROGEN 2019-04-15 16:33:00 Aishwarya Ly MD Eliseo peñaloza ELECTROLYTE PANEL 2019-04-15 16:33:00 Aishwarya Ly MD SERUM CREATININE 2019-04-15 16:33:00 Aishwarya Ly MD .GLOMERULAR FILTRATION RATE 2019-04-15 16:33:00 Aishwarya Ly MD CALCIUM LEVEL TOTAL 2019-04-15 16:33:00 Aishwarya Ly MD Eliseo anabela ALBUMIN LEVEL 2019-04-15 16:33:00 Aishwarya Ly MD ALKALINE PHOSPHATASE 2019-04-15 16:33:00 Aishwarya Ly MD ALANINE AMINOTRANSFERASE 2019-04-15 16:33:00 Aishwarya Ly MD ASPARTATE AMINOTRANSFERASE 2019-04-15 16:33:00 Aishwarya Ly TOTAL PROTEIN 2019-04-15 16:33:00 Aishwarya Ly MD FRACTIONATED BILIRUBIN 2019-04-15 16:33:00 Aishwarya Ly MDson ALANINE AMINOTRANSFERASE 2019-04-10 16:58:00 Shantanu Bolden MD ASPARTATE AMINOTRANSFERASE 2019-04-10 16:58:00 Shantanu Bolden FREE THYROXINE 2019-04-10 16:58:00 Shantanu Bolden MD GLUCOSE, RANDOM 2019-04-10 16:58:00 Shantanu Bolden MD THYROID STIMULATING HORMONE 2019-04-10 16:58:00 Shantanu Bolden MD BLOOD UREA NITROGEN 2019-04-10 16:58:00 Shantanu Bolden MD LIPID PANEL 2019-04-10 16:58:00 Shantanu Bolden MD ELECTROLYTE PANEL 2019-04-10 16:58:00 Shantanu Bolden MD Anderso n SERUM CREATININE 2019-04-10 16:58:00 Shantanu Bolden MD SERUM CREATININE 2019-04-10 16:58:00 Shantanu Bolden MD .GLOMERULAR FILTRATION RATE 2019-04-10 16:58:00 Shantanu Bolden MD CANCER ANTIGEN 19-9 2019-04-05 19:13:00 Aishwarya Ly MD COMPLETE BLOOD COUNT W/ DIFFERENTIAL 2019-04-05 19:13:00 Aishwarya Ly MD CARCINOEMBRYONIC ANTIGEN 2019-04-05 19:13:00 Aishwarya Ly MD COMPREHENSIVE METABOLIC PANEL 2019-04-05 19:13:00 Aishwarya Ly MD LACTATE DEHYDROGENASE 2019-04-05 19:13:00 Aishwarya Ly MAGNESIUM LEVEL 2019-04-05 19:13:00 Aishwarya Ly MD PHOSPHORUS LEVEL 2019-04-05 19:13:00 Aishwarya Ly MD Results CBC 2019-04-05 19:13:00 Aishwarya yL MD MANUAL DIFFERENTIAL 2019-04-05 19:13:00 Aishwarya Ly MD GLUCOSE LEVEL 2019-04-05 19:13:00 Aishwarya Ly MD BLOOD UREA NITROGEN 2019-04-05 19:13:00 Aishwarya Ly MD ELECTROLYTE PANEL 2019-04-05 19:13:00 Aishwarya Ly MD SERUM CREATININE 2019-04-05 19:13:00 Aishwarya Ly MD .GLOMERULAR FILTRATION RATE 2019-04-05 19:13:00 Aishwarya Ly MD CALCIUM LEVEL TOTAL 2019-04-05 19:13:00 Aishwarya Ly MD ALBUMIN LEVEL 2019-04-05 19:13:00 Ly, Aishwarya Chowdhury ALKALINE PHOSPHATASE 2019-04-05 19:13:00 Ly, Aishwarya woody ALANINE AMINOTRANSFERASE 2019-04-05 19:13:00 Ly, Aishwarya Chowdhury ASPARTATE AMINOTRANSFERASE 2019-04-05 19:13:00 Ly, Aishwarya Chowdhury TOTAL PROTEIN 2019-04-05 19:13:00 LyAishwarya MD FRACTIONATED BILIRUBIN 2019-04-05 19:13:00 Ly, Aishwarya subramanian COMPREHENSIVE METABOLIC PANEL 2019-03-24 16:59:00 Ly, Aishwarya Chowdhury LACTATE DEHYDROGENASE 2019-03-24 16:59:00 Ly, Aishwarya Medley MAGNESIUM LEVEL 2019-03-24 16:59:00 Ly, Aishwarya Chowdhury PHOSPHORUS LEVEL 2019-03-24 16:59:00 LyAishwarya MD CANCER ANTIGEN 19-9 2019-03-24 16:59:00 Ly, Aishwarya peñaloza COMPLETE BLOOD COUNT W/ DIFFERENTIAL 2019-03-24 16:59:00 Ly, Aishwarya Chowdhury MD NGS BLOOD CONTROL 2019-03-24 16:59:00 Ly, Aishwarya woody GLUCOSE LEVEL 2019-03-24 16:59:00 Ly, Aishwarya Chowdhury BLOOD UREA NITROGEN 2019-03-24 16:59:00 Ly, Aishwarya peñaloza ELECTROLYTE PANEL 2019-03-24 16:59:00 Ly, Aishwarya hewitt SERUM CREATININE 2019-03-24 16:59:00 Ly, Aishwarya Chowdhury .GLOMERULAR FILTRATION RATE 2019-03-24 16:59:00 LyAishwarya MD CALCIUM LEVEL TOTAL 2019-03-24 16:59:00 Ly, Aishwarya peñaloza ALBUMIN LEVEL 2019-03-24 16:59:00 LyAishwarya MD ALKALINE PHOSPHATASE 2019-03-24 16:59:00 Ly, Aishwarya woody ALANINE AMINOTRANSFERASE 2019-03-24 16:59:00 LyAishwarya MD ASPARTATE AMINOTRANSFERASE 2019-03-24 16:59:00 LyAishwarya TOTAL PROTEIN 2019-03-24 16:59:00 LyAishwarya MD FRACTIONATED BILIRUBIN 2019-03-24 16:59:00 Aishwarya Ly MD Results CBC 2019-03-24 16:59:00 Aishwarya Ly MD MANUAL DIFFERENTIAL 2019-03-24 16:59:00 Aishwarya Ly MD Eliseo peñaloza ARCHIVED MATERIAL RETRIEVAL 2019-03-21 00:00:00 Austin Gonsalves MD PATHOLOGY REQUISITION 2019-03-15 00:00:00 Austin Gonsalves MD And payal Encounters Start Date/Time End Date[facility] En[facility] Source 2019-10-26 15:28:49 Outpatient MDA MDA 1 [id number] MD Chowdhury 2019-10-25 16:00:28 Outpatient RONAN CONTE MDA, MD [id number] MD Chowdhury 2019-10-25 15:57:33 Outpatient RONAN CONTE MDA, MD [id number] [facility] 2019-10-24 12:17:13 Outpatient MDA MDA 1 [id number] [facility] 2019-10-20 11:33:33 Outpatient RONAN CONTE MDA, MD [id number] [facility] 2019-11-22 00:00:00 2019-11-22 00:00:00 Outpatient CIRO TAI I MDA MDA [id number] [facility] 2019-11-08 00:00:00 2019-11-08 00:00:00 Outpatient ANG SALDIVAR MDA MDA [id number] [facility] 2019-11-03 00:00:00 2019-11-03 00:00:00 Outpatient ANG SALDIVAR MDA MDA [id number] [facility] 2019-11-03 00:00:00 2019-11-03 00:00:00 Outpatient ANG SALDIVAR MDA MDA [id number] [facility] 2019-11-02 08:30:00 2019-11-02 08:30:00 Outpatient BEN LE MDA MDA [id number] [facility] 2019-11-01 11:45:00 2019-11-01 11:45:00 Outpatient ANG SALDIVAR MDA MDA [id number] [facility] 2019-11-01 11:30:00 2019-11-01 11:30:00 Outpatient ANG SALDIVAR MDA MDA [id number] [facility] 2019-11-01 10:21:19 2019-11-01 11:22:36 Outpatient HERIBERTO SALDIVARUBHAM MDA MDA [id number] [facility] 2019-11-01 11:15:00 2019-11-01 11:15:00 Outpatient HERIBERTO SALDIVARUBHAM MDA MDA [id number] [facility] 2019-11-01 10:45:00 2019-11-01 10:45:00 Outpatient HERIBERTO SALDIVARUBHAM MDA MDA [id number] [facility] 2019-11-01 09:30:00 2019-11-01 09:30:00 Outpatient MARY KATE URBINA ANG MDA MDA [id number] [facility] 2019-11-01 00:00:00 2019-11-01 00:00:00 Outpatient EL CARLITOS ANG MDA MDA [id number] [facility] 2019-11-01 00:00:00 2019-11-01 00:00:00 Outpatient EL MDA MDA [id number] [facility] 2019-10-26 15:00:00 2019-10-26 23:59:00 Outpatient HERIBERTO SALDIVARUBHAM MDA MDA [id number] [facility] 2019-10-26 13:41:08 2019-10-26 13:41:08 Outpatient EL TAI, SHIVAN I MDA MDA [id number] [facility] 2019-10-25 00:00:00 2019-10-25 00:00:00 Outpatient TAI, SHIVAN I MDA MDA [id number] [facility] 2019-10-20 09:14:01 2019-10-20 09:14:01 Outpatient EL TAI, SHIVAN I MDA MDA [id number] [facility] 2019-10-20 00:00:00 2019-10-20 00:00:00 Outpatient EL TAI, SHIVAN I MDA MDA [id number] [facility] 2019-10-18 00:00:00 2019-10-18 00:00:00 Outpatient EL TAI, SHIVAN I MDA MDA [id number] [facility] 2019-10-17 09:47:50 2019-10-17 09:52:58 Outpatient EL TAI, SHIVAN I MDA MDA [id number] [facility] 2019-10-12 12:20:53 2019-10-12 12:26:17 Outpatient EL ZAIRE SHIVAN I MDA MDA [id number] [facility] 2019-08-09 10:14:00 2019-08-09 10:14:00 Out[place] [id number] [facility] 2019-08-03 14:15:00 2019-08-03 14:15:00 [place] [id number] [facility] 2019-01-30 14:45:00 2019-01-30 14:45:00 [place] [id number] [employer] 2018-12-25 04:22:00 2018-12-25 04:22:00 Emergency E [id number] 2018-12-16 19:36:00 2018-12-16 19:36:00 Emergency E [facility] BL [id number] [facility] 2018-07-20 15:15:00 2018-07-20 15:15:00 [place] [id number] eClinicalWorks 2018-07-07 10:00:00 2018-07-07 10:00:00 [place] [id number] eClinicalWorks 2018-06-29 14:30:00 2018-06-29 14:30:00 [place] [id number] eClinicalWorks 2018-06-14 11:00:00 2018-06-14 11:00:00 [place] [id number] eClinicalWorks 2018-05-16 11:45:00 2018-05-16 11:45:00 [place] [id number] eClinicalWorks 2017-05-04 12:26:00 2017-05-04 12:26:00 [place] [id number] eClinicalWorks 2017-04-28 16:41:00 2017-04-28 16:41:00 [facility] [id number] eClinicalWor ks 2017-04-28 16:33:00 2017-04-28 16:33:00 [facility] [id number] eClinicalWor al 2017-04-22 13:45:00 2017-04-22 13:45:00 [place] [id number] eClinicalWorks 2017-03-12 09:38:00 2017-03-12 09:38:00 [place] [id number] eClinicalWorks 2016-09-08 10:00:00 2016-09-08 10:00:00 [place] [id number] eClinicalWorks 2016-09-08 09:45:00 2016-09-08 09:45:00 [place] [id number] eClinicalWorks 2016-07-21 11:00:00 2016-07-21 11:00:00 [place] [id number] eClinicalWorks 2016-01-16 14:30:00 2016-01-16 14:30:00 Outpatient Gene Benitez [place], [place] [id number] eClinicalWorks 2015-07-10 15:15:00 2015-07-10 15:15:00 Outpatient Gene Benitez [place], [place] [id number] eClinicalWorks 2015-07-04 14:00:00 2015-07-04 14:00:00 Outpatient Gene Benitez [place], [place] [id number] eClinicalWorks 2015-06-11 08:58:00 2015-06-11 08:58:00 Outpatient Gene Benitez [place], [place] [id number] eClinicalWorks 2015 14:40:00 2015 14:40:00 Outpatient Gene Benitez [place], [place] [id number] eClinicalWorks 2014-12-24 15:00:00 2014-12-24 15:00:00 Outpatient Gene [place]itez [place], [place] [address] eClinicalWorks Results Test Description Test Time Test Comments Results Result Comments Source Fractionated Bilirubin 2020-01-25 16:25:18 Test Item Bili Total (test code = 5096) 0.3 mg/dL <=1.2 Indocyanine Green (ICG) may cause falsely elevated bilirubin results. Total and direct bilirubin must not be measured from samples containing indocyanine green. False elevation of total bilirubin can be seen in patients with IgG concentrations above 28 g/L. Bili Direct (test code = 5094) <0.2 <=0.3 mg/dL Indocyanine Green (ICG) may cause falsely elevated bilirubin results. Total and direct bilirubin must not be measured from samples containing indocyanine green. Bili Indirect (test code = 5095) See Note 0-0.9 Unable to calculate Indirect Bilirubin result due to some parameters are outside reportable range MD ChowdhuryTotal Qgitxta2551-82-60 16:25:16* Test Item Value Reference Range Interpretation Comments Total Protein (test code = 7649) 7.8 g/dL 6.4-8.3 MD ChowdhuryCalcium Ihkkn7454-16-52 16:25:14* Test Item Value Reference Range Interpretation Comments Calcium Lvl (test code = 5258) 9.6 mg/dL 8.4-10.2 MD ChowdhuryMagnesium [id number] 16:25:13* Test Item Value Reference Range Interpretation Comments Magnesium (test code = 6359) 2.5 mg/dL 1.6-2.6 MD ChowdhuryPwtndlrnJUL0318-91-83 16:25:11* Test Item Value Reference Range Interpretation Comments LDH (test code = 6111) 261 U/L 135-214 H Resul ts greater than 1651 U/L may not be reliable due to matrix effect with extended dilution as it exceeds the boring machine operator double end s recommended limit. Caution should be exercised when interpreting such values and done in conjunction with clinical context. Lab Interpretation (test code = 61988-9) Abnormal [place]onAlkaline Wcvtstqexsy6408-24-11 16:25:09* Test Item Value Reference Range Interpretation Comments Alk Phos (test code = 4768) 151 U/L 35-104 H Lab Interpretation (test code = 63191-4) Abnormal MD ChowdhuryGlucose Bahgc4949-11-78 16:25:07* Test Item Value Reference Range Interpretation Comments Glucose Level (test code = 5699) 129 mg/dL 70-99 H Reference range is valid for fasting specimens only. Guidelines established by the [place] [employer] guidelines (Standards of Medical Care in Diabetes 2016. Diabetes Care 2016; 39: S13-22) are that a fasting glucose of greater than or equal to 126 mg/dL or a random glucose greater than or equal to 200 mg/dL with symptoms, that are confirmed by repeat testing on a different day, meet the criteria for diabetes mellitus. Lab Interpretation (test code = 36291-3) [facility] Bkxxk0846-27-96 16:25:06* Test Item Value Reference Range Interpretation Comments Albumin Lvl (test code = 4763) 4.2 3.5- 5.2 gm/dL MD ChowdhuryDlqshzmeNrkzomqhsroq4273-38-22 16:01:45* Test Item Value Reference Range Interpretation Comments Neutrophil % (test code = 31249-8) 39.1 % 42-66 L Lymphocyte % (test code = 737-7) 41.5 % 24-44 Monocyte % (test code = 744-3) 11.2 % 2-7 H Eosinophil % (test code = 713-8) 7.0 % 1-4 H Basophil % (test code = 707-0) 1.0 % 0-1 IGRE % (test code = 84994-1) 0.2 % 0-0.4 IGRE % count includes Metamyelocytes, Myelocytes, and Promyelocytes. Neutrophil Abs (test code = 753-4) 1.89 K/uL 1.7-7.3 Lymphocyte Abs (test code = 732-8) 2.01 K/uL 1-4.8 Monocyte Abs (test code = 743-5) 0.54 K/uL 0.08-0.7 Eosinophil Abs (test code = 712-0) 0.34 K/uL 0.04-0.4 Basophil Abs (test code = 705-4) 0.05 K/uL 0-0.1 IG Abs (test code = 15226-0) 0.01 K/uL 0-0.04 Lab Interpretation (test code = 55314-5) Abnormal [facility].[id number] 16:01:41* Test Item Value Reference Range Interpretation Comments WBC (test code = 6690-2) 4.8 K/uL 4-11 RBC (test code = 789-8) 4.44 4.00- 5.50 M/uL Hgb (test code = 718-7) 12.3 12.0- 16.0 gm/dL Hct (test code = 4544-3) 38.9 % 37-47 MPV (test code = 787-2) 11.0 fL 4-10.4 H MCH (test code = 785-6) 27.7 pg 27-31 MCHC (test code = 786-4) 31.6 31.0- 36.0 gm/dL RDW-SD (test code = 82986-4) 50.8 fL 35.1-46.3 H RDW-CV (test code = 788-0) 15.9 % 12-15.5 H Platelet count (test code = 777-3) 331 K/uL 140-440 INRBC (test code = 5974) 0.0 % <=0.0 The INRBC (instrument NRBC) value reflects the enumerationof nucleated red blood cells contained in a 200uL sampleof whole blood analyzed by the instrument. This value maydiffer from the NRBC value reported in a manual differential,which is based on a 100 cell differential. Lab Interpretation (test code = 11686-2) Abnormal [facility] ([facility]-2[facility] PCR-Asymptomatic [id number] 00:37:00* Test Item Value Reference Range Interpretation Comments COVID19 (SARS CoV-2) Result (test code = 52435-6) Not Detected Not Detected This test is a qualitative reverse-transcriptase polymerase chain reaction (RT- PCR) developed for the [employer] 6800 system and intended for the detection of SARS CoV-2 RNA in human nasopharyngeal specimens from patients who meet COVID- 19 clinical and/or epidemiological criteria. This assay has been approved by the FDA for use only under Emergency Use Authorization (EUA) in laboratories that have been CLIA-certified to perform moderate-complexity and high-complexity tests. The performance characteristics of this assay were verified by the Microbiology Laboratory at [facility], CLIA Accreditation #: [id number] and CAP Accreditation #: [id number]. Results must be interpreted within the context of all relevant clinical and laboratory findings and should not form the sole basis for a diagnosis or treatment decision. "Presumptive Positive" results are due to partial amplification of SARS-CoV-2 targets and indicates low amounts of virus present in the specimen at or near the limit of detection. Regardless, individuals with "Presumptive Positive" results should be managed per institutional guidelines as individuals positive for SARS-CoV-2 virus, including use of appropriate infection control protocols. Internal controls are included to assess for possible amplification inhibitors. If inhibition is detected, testing is repeated and if inhibition is confirmed the specimen is resulted as "Invalid". When an "Invalid" result occur, it is recommended to wait 3 days before submitting a new specimen for testing if clinically indicated. COVID19 SARS Source (test code = 12268) TRANSFER PROFESSOR Swab COVID19 SARS Indication (test code = 11820) Pre-Radiation Therapy MD ChowdhuryCT Chest Abdomen Pelvis with [id number] 20:47:21 Interval decrease in the size of the cystic and solid recurrence at the pancreatic resection margin.Liver lesions have decreased in size. (Please note: This do cument was created using a voice-recognition transcribing system. Please contact me for clarification.)Interface, Radiology Results In - 01/04/2020 3:49 PM CDT FULL RESULT:Examination: CT CHEST ABDOMEN PELVIS W CONTRAST, 01/02/2020 3:18 PMCli nical History: Pancreatic cancerIndication: COVID-19 Not Suspected, pancreatic c ancerComparison: CT CHEST ABDOMEN PELVIS W CONTRAST, 10/10/2019MRI PELVIS W WO CO NTRAST, 11/03/2019 Technique: CT of the chest, abdomen, and pelvis was performed with intravenous contrast.Findings: Chest:Lungs/Pleura: There is a punctate nodu le in the left lower lobe(15, 87). No evidence of pleural effusion.Visualized ne ck:Low density lesions are seen in the thyroid gland.Mediastinum/Lymph nodes: No evidence of progressive adenopathy. Heart/Great Vessels: The heart is unchanged in appearance.Pulmonary Arteries:No definite evidence of central filling defect .Chest wall/other:There is a port catheter in the right chest wall.Abdomen/Pelvi s:Hepatobiliary: There is hepatic steatosis. The peripheral enhancing lesion in segment III measures 1.1 x 1.1 cm (14, 161). The previously seen a lesion in seg ment III measures 1 cm (14, 248).Spleen: The patient is status post splenectomy. Pancreas:The previously solid and cystic recurrent tumor of the surgical margin measures 1.9 x 1.3 cm with decrease in the cystic component (14, 163). Patient i s status post distal pancreatectomy.Gastrointestinal tract:There is no definite evidence of bowel obstruction.Genitourinary:Kidneys: There is no evidence of hyd ronephrosis.Adrenal Glands:The adrenal glands are unchanged.Bladder:The bladder is unchanged in appearance.Reproductive:The uterus has been resected.Lymph nodes /vessels:There is no evidence of progressive adenopathy. Atherosclerotic disease is seen of the vessels.Bones/Soft Tissues/other: Postsurgical changes are seen of the spine. There is an implanted spinal stimulation device in the subcutaneou s tissue of the back.IMPRESSION:Interval decrease in the size of the cystic and solid recurrence at the pancreatic resection margin.Liver lesions have decreased in size.(Please note: This document was created using a voice-recognition trans cribing system. Please contact me for clarification.)MD Jones Glucose [id number] 20:30:59* Test Item Value Reference Range Interpretation Comments POC Glucose (test code = 35512-5) 131 mg/dL 70-99 H Capillary blood samples, e.g. obtained by fingerstick, may have inaccurate results in patients with decreased peripheral blood flow. PO Sample Type (test code = 9554) Capillary Lab Interpretation (test code = 46963-7) Abnormal MD ChowdhuryPain Management Fluoroscopy (Image Transfer)2019-12-27 16:28:33This procedure requires no interpretation from the radiologist.MD Chasend Photos - OU - Both [id number] 17:34:56Right EyeAppearance of lesion has been stable. Left EyeAppearance of lesion has been stable. MD No, Retina - OU - Both Amyw1429-10-56 17:34:43Right EyeQuality was good. Progression: stable. Findings include normal observations. Left EyeQuality was good. Progression: stable. Findings include normal observations. MD Nichols Leg Venous Doppler [id number] 17:25:25 No sonographic evidence of left lower extremity deep venous thrombosis. Interface, Radiology Results In - 11/28/2019 12:27 PM CDTFULL RESULT:Examination: US LEG VENOUS DOPPLER LEFT, 11/28/2019 12:05 PM.Clinical History: Localized edema.Indication: Edema, rule out deep venous thrombosis.Comparison: 02/01/2017.Technique: Transverse and longitudinal images of the left lower extremity deep venous system was performed with color, spectral and Doppler analysis with augmentation and compression maneuvers.Findings: The left common femoral, superficial femoral and popliteal veins are compressible with Doppler flow and spontaneous phasic waveforms, which respond to augmentation. The proximal calf veins where visualized are within normal limits. No thrombus is identified in the left lower extremity deep venous system.IMPRESSION:No sonographic evidence of left lower extremity deep venous thrombosis. MD ChowdhuryPathology Biopsy [id number] 20:05:00* Test Item Value Reference Range Interpretation Comments Diagnosis (test code = 34) y6biaAUpKWYvtZX5EKKkPRVvb1khw4LamSCfqGMeUCelxXNdobGnln95tCS0gS72ZC1lWJIwCoY2TKUg onA3Lea0HDVvWQBtqRTuU301t6lxe6tcsxOdgVQ7nJciSHLtCBFfZAktYXUaWpNqFC9xOKaWIbAJHQDN GBKSKVPKKkFTXUFmACtGMvIHB2YLVM9ZARiDLODbYu sPJEPXOoWcqDAoQUGaNcOjGC7hK2IxdJmsAYKvUoOsfuccvx8aDDUkUHwcx1E8lZFwXEBfkyJFlaX9gK SbaQKkgVcpn1MjZGTnIKLyujJfUQ38wRBfiPrwAQWiBSXnmoQxWXZvlBNkRYgwnDofCYYiQeaoGWBpYn 8eMdEyS4WqNU6rF5ShlXYojoYqWKJbwYucvFXaWKsV LZFiq6l2bMYsrPdru7Sdp93xCiiwGCLptXUlJWAsce2= Gross Description (test code = 0330103759) [file] pCUhsKpowa74DKJ6OTSWWgiwny47JBY3DZRsxMkhyX2jChMoEyrmEYE0HRJvjd3BqW== Disclaimer (test code = 9844) [file] D8lvBjMdGpIvQxxjMTR4 MD ChowdhuryMyoglobin, [id number] 23:16:16* Test Item Value Reference Range Interpretation Comments U Myoglobin-[place] (test code = 2641-9) 31 <=21 mcg/L H Urinary myoglobin is highly unstable unless alkalinizedwith Na2CO3 preservative. Even with alkalinization,myoglobin deterioration is variable and sample dependent(approximate averages of 10% at 1 day, 20% at 3 days, and30% at 7 days). ADDITIONAL INFORMATION This test has been modified from the boring machine operator double end'sinstructions. Its performance characteristics weredetermined by [facility] in a manner consistent withCLIA requirements. This test has not been cleared orapproved by the U.S. Food and Drug Administration. Test Performed by:[address] [address]Bhu Director: Deon Reeder M.D. Ph.D.; CLIA# [id number] FRANK (test code = FRANK) C1D1 lab for Lab Interpretation (test code = 49375-9) Abnormal MD ChowdhuryIR US GUIDED BIOPSY [id number] 19:17:27Date of Procedure: 11/16/19 Attending Physician: Chica Elder MD Salesperson Meats: None Pre Procedure Diagnosis: Pancreatic cancer Post Procedure Diagnosis: Unchanged Indication: Molecular testing and Research sampling The patients clinical history was reviewed in detail. On the basis of available clinical data, the procedure noted above is medically necessary to diagnose or correct a serious m edical condition. The patient is at risk for cancer progression or decline in th eir medical condition if the procedure is delayed . Protocol Number: [id number] Title of Procedure:Percutaneous Ultrasound-Guided Biopsy Operative Findings: Pe rcutaneous image-guided biopsy of the 2.2 cm left liver lesion. Consent: The pr ocedure, risks, indications and alternatives were explained. All questions were answered and informed consent was obtained. I have reviewed the history and p hysical dictated by the mid-level practitioner / fellow. Sedation/Anesthesia: M oderate sedation for pain control and anxiety was administered by a dedicated nu rse under my supervision. There was continuous monitoring of oxygen saturation, heart rate and intermittent monitoring of blood pressure during the procedure. Medication given was midazolam and fentanyl. I was present for the administra tion of the medications indicated above.Procedure Events Event Event Time Sedati on Start 11/16/2019 12:57 PM Sedation End 11/16/2019 1:16 PM Procedure in Detai l: A time out was performed prior to the start of the procedure and the correct patient, procedure, presence of consent, site, and side were confirmed with all members of the team. With the patient in the supine position, the skin overlyin g the area of interest was prepped and draped in the usual sterile fashion. Lid ocaine 1% was used for local anesthesia. Using an anterior approach under Ultras ound image-guidance, a 17 gauge needle was advanced down to the left liver. An i mage was obtained and placed into the medical record. Samples were obtained for evaluation. Sampling: Core Biopsy: An 18 gauge needle used to obtain samples for surgical pathology evaluation. Total number of samples: 2 Research Bio psy: An 18 gauge needle was used to obtain 2 core samples as per protocol. Quintin huddleston Disposition: Diagnostic Biopsy: The biopsy samples were submitted to p athology. Research Biopsy: The samples were submitted to the appropriate rese arch staff in the designated media as outlined in the protocol. Additional Comme nts: None Estimated Blood Loss: Minimal Immediate Complications: None Disposi tion: PACU Plan: 1. No follow-up with Interventional Radiology required.MD [id number] 16:50:39* Test Item Value Reference Range Interpretation Comments CEA (test code = 5203) 2.3 ng/mL <=3.8 Refer ence Ranges:Smoker 0.0 - 5.5 Testing Performed at [facility], [address] [place] [address], [address], [place] [address] MD ChowdhuryBernard Pelvis with and without [id number] 18:19:38Postsurgical changes as described above without evidence of metastasis within the pelvis. 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 Recurrent disease in October 2017 (soft tissue mass in the lesser sac, paraceliac adenopathy) recently on FOLFIRI after chemoradiation , currently on second line gem/abraxane.Indication: Response assessment - post-c hemotherapy, inductionComparison: MRI of the abdomen from 10/26/2019, CT chest abd omen and pelvis from 10/10/2019Technique: Multiplanar multisequence magnetic reso nance imaging of the pelvis was performed without and with intravenous administr ation of contrast.Findings:The uterus is surgically absent. Decompressed urinary bladder. No pelvic free fluid. No significant pelvic lymphadenopathy. No eviden ce of abnormal enhancement or restricted diffusion within the pelvis to suggest metastatic disease. Susceptibility artifacts related to lower lumbar spinal fusi on. No evidence of focal marrow abnormality.IMPRESSION:Postsurgical changes as d escribed above without evidence of metastasis within the pelvis.I personally rev iewed these image(s) along with the resident's/fellow's interpretations, certify that if a procedure was performed I was physically present, and agree with the final report.MD Green B Surface [id number] 20:25:48* Test Item Value Reference Range Interpretation Comments Hep Bs Ab-[place] (test code = 34658-5) Negative Patient is presumed to be not immune to infection with HBV. REFERENCE VALUE Unvaccinated: NegativeVaccinated: Positive Hep Bs Ab -[place] (test code = 5193-8) <5.0 mIU/mL REFERENCE VALUE Unvaccinated: <5.0Vaccinated: >=12.0 Test Performed by:[facility] [place] [id number] Director: Deon Reeder M.D. Ph.D.; CLIA# [id number] MD Hamm Photos - OU - Both [id number] 15:53:21Right EyeThe vitreous is clear. Disc findings include normal observations. Macula findings include normal observations. Vessel findings include normal observations. Periphery findings include normal observations. Left EyeThe vitreous is clear. Disc findings include normal observations. Macula findings include normal o bservations. Vessel findings include normal observations. Periphery findings inc lude normal observations. MD ChowdhuryOCT, Retina - OU - Both [id number] 15:53:02Right EyeQuality was good. Findings include normal observations. Left EyeQuality was good. Findings include normal observations. MD Burton HBcAb Path [id number] 14:32:29* Test Item Value Reference Range Interpretation Comments HBcAb Path Interp (test code = 8924) There is NO serol ogic evidence of Hepatitis B virus core antibody. SOPHIA FOWLER,Dictated by: SOPHIA FOWLER,Dictated Date/Time: 11.02.2019 9:32 AM CDT Transcribed Date/Time: 11.02.2019 9:32 AM CDTElectronically Signed By: SOPHIA FOWLER on 11.02.2019 9:32 AM C MD Burton HBsAg Path [id number] 14:32:28* Test Item Value Reference Range Interpretation Comments HBsAg Path Anatp (test code = 8922) There is NO serol ogic evidence of detectable Hepatitis B virus surface antigen. SOPHIA FOWLER,Dictated by: SOPHIA FOWLER,Dictated Date/Time: 11.02.2019 9:32 AM CDT Transcribed Date/Time: 11.02.2019 9:32 AM CDTElectronically Signed By: SOPHIA FOWLER on 11.02.2019 9:32 AM Eusebio Green C Virus [id number] 04:41:27* Test Item Value Reference Range Interpretation Comments HCVAb. (test code = 5762) Non Reactive Non Reactive Pe rformed at:MD Chowdhury [facility] [id number] [place] [id number] MD Green B Surface [id number] 04:41:15* Test Item Value Reference Range Interpretation Comments HBsAg. (test code = 5747) Non Reactive Non Reactive Pe rformed at:[facility] [id number] [place] [address] MD ChowdhuryHepatitis B Total Ig Core Ab (SCREENING) (anti-HBc total Ig; HBcAb total Ig)2019-11-02 04:41:09* Test Item Value Reference Range Interpretation Comments HBcAb. (test code = 5742) Non Reactive Non Reactive Pe rformed at:[facility] [id number] [place] [address] [facility] [id number] 18:05:39* Test Item Value Reference Range Interpretation Comments T3 Free (test code = 7478) 3.1 pg/mL 2-4.4 [facility] Abdomen with and without Myhuykou1865-72-26 14:58:01Similar sized recurrence along the pancreatic resection margin and presumed metastasis in the left hepatic lobe. Interface, Radiology Results In - 10/30/2019 10:00 AM CDTFULL RESULT:Examination: MRI ABDOMEN W WO CONTRAST 10/26/2019 6:09 PM.Clinical History: 64 y.o. female with recurrent metastatic pancreatic adenocarcinoma (NOHEMI, KRAS mut) recently on FOLFIRI for recurrent local disease after chemo radiation currently on 2nd line gem/abraxane..Indication: Restaging.Comparison: MRI 07/08/2018. CT chest abdomen and pelvis 10/10/2019.Technique: Multiplanar, m ultisequence MRI of the abdomen was performed before and after intravenous contr ast administration. Findings: Hepatobiliary: A peripherally enhancing 1.7 x 2 cm lesion with restricted diffusion in segment 3 (series 12 image 46, series 1450 image 125) was not present on 06/16/2018, previously 1.5 x 1.6 cm on 06/06/2019 and 1.6 x 1.9 cm on 10/10/2019. The vague targetoid segment [address] 10/10/2019 is not well visualized and can be followed. No intra or extrahepatic biliary ductal dilatation. Pancreas: Status post distal pancreatectomy. Recurr ent mass at the pancreatic resection margin measures 2.1 x 2.3 cm (series 13 raven ge 49), previously 2 x 2.3 cm on 10/10/2019.Spleen: AbsentAdrenals: No adrenal n odules.Kidneys: No hydronephrosis. No suspicious lesions.Bowel: No evidence of o bstruction.Vessels: No aneurysmal dilation of the aorta. Narrowing in the region of the SMV-PV confluence again noted. Lymph nodes: No enlarging lymph nodes. Pe ritoneum: No free fluid.Soft tissues: Postsurgical changes along the anterior ab dominal wall.Bones: Lumbosacral fusion hardware.IMPRESSION:Similar sized recurre nce along the pancreatic resection margin and presumed metastasis in the left he patic lobe. MD ChowdhuryCT Chest with [id number] 00:12:15There are no intrathoracic metastases. Interface, Radiology Results In - 10/26/2019 7:14 PM CDTFULL RESULT:Examination: CT CHEST W CONTRAST, 10/26/2019 6:13 PMClinical History: Pancreatic cancer [C25.9 (ICD-10-CM)].Indication: Restaging.Comparison: CT of the chest, abdomen and pelvis 10/10/2019.Technique: Standard chest CT with intravenous contrast.Findings: 1. There are no pulmonary nodules suspicious for metastases. A 3-4 mm noncalcified nodule in the left lower lobe is unchanged since 01/02/2017 and consistent with a benign etiology.2. There are no enlarged intrathoracic lymph nodes.3. Focal lesion in segment 3 of the liver detected on dedicated CT imaging of the liver on 10/10/2019 is suboptimally visualized on the current study. A low-attenuation lesion in the liver is unchanged and consistent with a cyst. There are small hypervascular foci within the liver consistent with a benign etiology.4. The adrenals are normal.5. 2.5 cystic and solid lesion in the region of the pancreatic resection margin consistent with recurrent malignancy (image 130) has been incompletely imaged although the visualized por tion is unchanged.6. A right implanted port catheter has its tip in the superior vena cava.IMPRESSION:There are no intrathoracic metastases.MD ChowdhuryControlled Substance Monitoring Panel, [id number] 03:20:22* Test Item Value Reference Range Interpretation Comments U Amphetamines-[place] (test code = 01029-4) Negative Cutoff: 500 ng/mL U Barbiturates-[place] (test code = 12730-1) Negative Cutoff: 200 ng/mL U Cocaine Lvl-[place] (test code = 41000-3) Negative Cutoff: 150 n g/mL U Phency-Mart[place] (test code = 65719-3) Negative Cutoff: 25 ng/mL U THC-Martinez (test code = 97531-1) Negative Cutoff: 50 ng/mL ADDITIONAL INFORMATION This report is intended for use in clinical monitoring ormanagement of patients. It is not intended for use inemployment-related testing. Codeine (test code = 78292-5) Not Detected Cutoff: 25 ng/mL Tylenol 3 Mdjlwoi-2-ugbb-glucuronide (test code = 9565) Not Detected Cutoff: 100 ng/mL Metabolite of codeine Morphine (test code = 94164-7) Not Detected Cutoff: 25 ng/mL Crow, Yanique, MS Contin; Also a minor metabolite (10%) ofcodeine and can be seen in low concentrations (<2,000ng/mL) with poppy seed ingestion. Owasxnot-0-cgso-glucuronide (test code = 9567) Not Detected Cutoff: 100 ng/mL Metabolite of morphine 6-monoacetylmorphine (test code = 72836-0) Not Detected Cutoff: 25 ng/mL Metabolite of heroin Hydrocodone (test code = 71220-3) Not Detected Cutoff: 25 ng/mL Lortab, [place], Vicodin; Also a very minor metabolite ofcodeine and impurity (<1%) of oxycodone. Norhydrocodone (test code = 9570) Not Detected Cutoff: 25 ng/mL Metabolite of hydrocodone Dihydrocodeine (test code = 46476-8) Not Detected Cutoff: 25 ng/mL Metabolite of hydrocodone Hydromorphone (test code = 14323-0) Not Detected Cutoff: 25 ng/mL Dilaudid, Exalgo; Also a metabolite of hydrocodone and aminor (<5%) metabolite of morphine. Bugqqhqhpnjkc-1-veei-glucuronide (test code = 9573) Not Dete cted Cutoff: 100 ng/mL Metabolite of hydromorphone Oxycodone (test code = 00419-3) Not Detected Cutoff: 25 ng/mL Endocet, Percocet, Oxycontin Noroxycodone (test code = 9575) Present Cutoff: 25 ng/mL A Metabolite of oxycodone Oxymorphone (test code = 90663-8) Not Detected Cutoff: 25 ng/mL Numorphan, Opana; Also a metabolite of oxycodone. Jsaggkbftyg-5-buqg-glucuronide (test code = 9577) Not Detect ed Cutoff: 100 ng/mL Metabolite of oxymorphone an d/or naloxone (nornaloxone) Noroxymorphone (test code = 9578) Not Detected Cutoff: 25 ng/mL Metabolite of oxymorphone and/or naloxone (nornaloxone) Fentanyl (test code = 71176-3) Not Detected Cutoff: 2 ng/mL Actiq, Duragesic, [place] Norfentanyl (test code = 20019-4) Not Detected Cutoff: 2 ng/mL Metabolite of fentanyl Meperidine (test code = 22667-1) Not Detected Cutoff: 25 ng/mL Demerol Normeperidine (test code = 55187-3) Not Detected Cutoff: 25 ng/mL Metabolite of meperidine Naloxone (test code = 15667-7) Not Detected Cutoff: 25 ng/mL Narcan Nhqxblzq-2-bmzk-glucuronide (test code = 9584) Not Detected Cutoff: 100 ng/mL Metabolite of naloxone Methadone (test code = 24841-7) Not Detected Cutoff: 25 ng/mL Dolophine EDDP (test code = 9586) Not Detected Cutoff: 25 ng/mL Metabolite of methadone Propoxyphene (test code = 75472-3) Not Detected Cutoff: 25 ng/mL Darvon, Darvocet Norpropoxyphene (test code = 84094-1) Not Detected Cutoff: 25 ng/mL Metabolite of propoxyphene Tramadol (test code = 82204-4) Present Cutoff: 25 ng/mL A Tradol, Ultram, Ultracet O-desmethyltramadol (test code = 9590) Present Cutoff: 25 ng/m L A Metabolite of tramadol Tapentadol (test code = 75606-3) Not Detected Cutoff: 25 ng/mL Nucynta Azmrzyyowi-stuo-uwukurergpk (test code = 9593) Not Detected Cutoff: 100 ng/mL Metabolite of tapentadol Buprenorphine (test code = 9594) Not Detected Cutoff: 5 ng/mL Buprenex, Suboxone Norbuprenorphine (test code = 9595) Not Detected Cutoff: 5 ng/mL Metabolite of buprenorphine Norbuprenorphine Glucuronide (test code = 9596) Not Detected Cutoff : 20 ng/mL Metabolite of buprenorphine Benzodiazepine Interp Urine (test code = 00585-3) See Footnote Test detected the presence of clonazepam and its metabolite(7-aminoclonazepam). Suspect use of clonazepam within thepast five to seven days. ADDITIONAL INFORMATION This test was developed and its performance characteristicsdetermined by [facility] in a manner consistent with CLIArequirements. This test has not been cleared or approved bythe U.S. Food and Drug Administration. Test Performed by:[address] [address]Pwr Director: Deon Reeder M.D. Ph.D.; CLIA# [id number] Urine Creatinine (test code = 2161-8) 98.6 mg/dL Urine Specific [place] (test code = 5810-7) 1.015 Urine Ph (test code = 2756-5) 6 Urine Oxidants (test code = 64068-4) Negative Cutoff: 200 mg/L Urine Comment (test code = 9616) Normal Alprazolam Urine (test code = 36020) Not Detected Cutoff: 10 ng/mL Xanax Alpha-Hydroxyalprazolam Urine (test code = 88853-6) Not Dete cted Cutoff: 10 ng/mL Metabolite of Alprazolam Alpha-Hydroxyalprazolam Glucuronide Urine (test code = 11987 ) Not Detected Cutoff: 50 ng/mL Metabolite of Alprazolam Chlordiazepoxide Urine (test code = 85457-1) Not Detected Cutoff: 1 0 ng/mL Librium Colbazam Urine (test code = 40283) Not Detected Cutoff: 10 ng/mL Frisium, Onfi N-Desmethylclobazam Urine (test code = 20106) Not Detected Cutoff: 200 ng/mL Metabolite of Clobazam Clonazepam Urine (test code = 40184-1) Present Cutoff: 10 ng/m L A Klonopin, Rivotril 7-Aminoclonazepam Urine (test code = 32859) Present Cutoff: 10 ng/mL A Metabolite of Clonazepam Diazepam Urine (test code = 54388-5) Not Detected Cutoff: 10 ng/mL Valium Nordiazepam Urine (test code = 49599-4) Not Detected Cutoff: 10 ng/ mL Metabolite of Chlordiazepoxide, Diazepam, or Prazepam. Flunitrazepam Urine (test code = 67100-2) Not Detected Cutoff: 10 n g/mL Rohypnol 7-Aminoflunitrazepam Urine (test code = 34333) Not Detected Cutoff: 10 ng/mL Metabolite of Flunitrazepam FlUrinerazepam Urine (test code = 15566-8) Not Detected Cutoff: 10 ng/mL Dalmane 2-Hydroxy Ethyl Flurazepam Urine (test code = 25719) Not Det ected Cutoff: 10 ng/mL Metabolite of Flurazepam Lorazepam Urine (test code = 70791-1) Not Detected Cutoff: 10 ng/mL Ativan Lorazepam Glucuronide Urine (test code = 55121) Not Detected Cutoff : 50 ng/mL Metabolite of Lorazepam Midazolam Urine (test code = 55249-6) Not Detected Cutoff: 10 ng/mL Versed Alpha-Hydroxy Midazolam Urine (test code = 05510) Not Detected Cutoff: 10 ng/mL Metabolite of Midazolam Oxazepam Urine (test code = 72380-2) Not Detected Cutoff: 10 ng/mL Serax; Also a metabolite of Chlordiazepoxide, Diazepam, orTemazepam. Oxazepam Glucuronide Urine (test code = 55422) Not Detected Cutoff: 50 ng/mL Metabolite of Oxazepam Prazepam Urine (test code = 94494-7) Not Detected Cutoff: 10 ng/mL Centrax Temazepam Urine (test code = 01645-1) Not Detected Cutoff: 10 ng/mL Restoril; Also a metabolite of Diazepam. Temazepam Glucuronide Urine (test code = 72965) Not Detected Cutoff : 50 ng/mL Metabolite of Temazepam Triazolam Urine (test code = 22687-1) Not Detected Cutoff: 10 ng/mL Halcion Alpha-Hydroxy Triazolam Urine (test code = 49486) Not Detected Cutoff: 10 ng/mL Metabolite of Triazolam Zolpidem Urine (test code = 70259) Not Detected Cutoff: 10 ng/mL Ambien Zolpidem Oopcj-8-Zfpzcldziv Acid Urine (test code = 43527) N ot Detected Cutoff: 10 ng/mL Metabolite of Zolpidem Patients Current Medications (test code = 37853) Not Provided ADDITIONAL INFORMATION Accuracy and completeness of declared medications onreports solely dependent on information submitted byclient. Lab Interpretation (test code = 50001-3) Abnormal [facility] Urine Drug Ijjwmu5950-50-08 19:15:55* Test Item Value Reference Range Interpretation Comments POC U Amp (test code = 80802-8) Negative Negative Drug Abuse Cutoff Concentration: Cutoff: 1000 ng/mL POC U Barbit (test code = 75410-8) Negative Negative Drug Abuse Cutoff Concentration: 300 ng/mL POC U Benzo (test code = 05092-0) Negative Negative Drug Abuse Cutoff Concentration: Cutoff: 300 ng/ mL POC U Cocaine (test code = 16316-6) Negative Negative Drug Abuse Cutoff Concentration: Cutoff: 300 ng/mL POC U THC (test code = 22717-0) Negative Negative Drug Abuse Cutoff Concentration: Cutoff: 50 ng/mL POC U Methd (test code = 6701) Negative Negative Drug Abuse Cutoff Concentration: Cutoff: 300 ng/mL POC U Mampht (test code = 84067-7) Negative Negative Drug Abuse Cutoff Concentration: Cutoff: 1000 ng/mL POC U Opiate (test code = 62565-5) Negative Negative Drug Abuse Cutoff Concentration: Cutoff: 2000 ng/mL POC U Oxycod (test code = 61631-6) Negative Negative Drug Abuse Cutoff Concentration: Cutoff: 100 ng/mL Due to the assay cross reactivity between Oxycodone and Opiates, and lower sensitivity compared to GC-MS method, the test results may be falsely positive or falsely negative. Confirmation with concurrent GC-MS results is recommended. POC U PCP (test code = 21426-1) Negative Negative Drug Abuse Cutoff Concentration: Cutoff: 25 ng/mL POC U TCA (test code = 28931-8) Negative Negative Drug Abuse Cutoff Concentration: Cutoff: 1000 ng/mL POC U PPX (test code = 87201-6) Negative Negative Drug Abuse Cutoff Concentration: Cutoff: 300 ng/mL FRANK (test code = FRANK) The POC Urine Qualitative Dr ug Screen Panel report is intended for use in clinical monitoring or management of patients. Unconfirmed screening results must not be used for non-medical purposes such as legal or employment-related testing. [facility] Eggavbcclh3197-76-16 15:10:25* Test Item Value Reference Range Interpretation Comments POC Crea (test code = 73871-4) 0.7 mg/dL 0.6-1.3 Medications, especially hydroxyurea or supplements, such as ascorbate, can interfere with test results causing a falsely and significantlyhigher result than expected. If a problem is suspected with a patient's result, a sample should be sent to the laboratory for confirmatory testing. POC eGFR-AA (test code = 14272-2) 106 >=60 mL/min/1.73 m2 Normal eGFR >= 60 mL/min/1.73 m2 The eGFR is calculated using the CKD-EPI equation. The eGFR declines with age. eGFR <60 mL/min/1.73 m2 is considered as "decreased" This equation should only be used for patients 18 and older. According to the National Kidney Foundation's Kidney Disease Outcome Quality Initiative (KDOQI) classification and 2012 Kidney Disease Improving Global Outcomes (KDIGO) Cli nical Practice Guideline, the stage of CKD should be categorized based on estimated GFR. Stage Description GFR mL/min/1.73 m21 Kidney damage with normal or high GFR >=902 Kidney damage with mild decrease in GFR 60-893a Mild to moderate decrease in GFR 45-593b Moderate to severe decrease in GFR 30- 444 Severe decrease in GFR 15-295 Kidney failure <15 (or dialysis) POC eGFR-DEN (test code = 77168-7) 92 >=60 mL/min/1.73 m2 Normal eGFR >= 60 mL/min/1.73 m2 The eGFR is calculated using the CKD-EPI equation. The eGFR declines with age. eGFR <60 mL/min/1.73 m2 is considered as "decreased" This equation should only be used for patients 18 and older. According to the National Kidney Foundation's Kidney Disease Outcome Quality Initiative (KDOQI) classification and 2012 Kidney Disease Improving Global Outcomes (KDIGO) Cli nical Practice Guideline, the stage of CKD should be categorized based on estimated GFR. Stage Description GFR mL/min/1.73 m21 Kidney damage with normal or high GFR >=902 Kidney damage with mild decrease in GFR 60-893a Mild to moderate decrease in GFR 45-593b Moderate to severe decrease in GFR 30- 444 Severe decrease in GFR 15-295 Kidney failure <15 (or dialysis) POC Clean Dev (test code = 6672) Yes MD Chowdhury- US TRANSVAGINAL W/[id number] 16:47:00 Patient Name: JATINDER DUPREE Unit No: [id number] EXAMS: CPT CODE: [id number] US TRANSVAGINAL W/PELVIS 62140 Exam: Pelvic ultrasound Exam date: June 23, 2019 Comparison: October 13, 2016 HISTORY: Left lower quadrant pain. The patient is status post hysterectomy. Real-time transabdominal and transvaginal imaging of the pelvis demonstrates a surgically absent uterus. Neither ovary is convincingly identified. Peristaltic bowel is identified throughout the pelvis. No free fluid or masses are identified. IMPRESSION: 1. Status post hysterectomy. 2. Nonvisualization of the ovaries. 3. No abnormalities identified. at 1647 Reported and lisette d by: Grecia Babb MD CC: Bernardino Valentine MD Technologist: Farrah Guzman RDMS Probe: [id number] Trnscrbd D/ (1647) t.SDR.CER Orig Print D/T: S: 06/23/2019 (2657) [facility] NAME: JATINDER DUPREEAC Radiology Department PHYS: Bernardino Cevallos [address] : 1955 AGE: 64 SEX: F [place], [place] [address] LOC: F.RAD PHONE #: [phone] EXAM LUCRECIA E: 06/23/2019 STATUS: REG CLI FAX #: [phone] RAD NO: [id number] Page 1 Signed Report P atient Name: JATINDER DUPREE Unit No: [id number] EXAMS: CPT CODE: [id number] US TRANS VAGINAL W/PELVIS 80228 <Continued> [facility] NAME: JATINDER DUPREE [facility] Radiology Department PHYS: DANIELLEGABRIEL Dela Cruz MemeBernardino Silva [address] : 1955 AGE: 64 SEX: F [place], [place] [address] LOC: Harpreet.RAD PHONE #: [phone] EXAM DATE: 06/23/2019 STATUS: REG CLI FAX #: [phone] RAD NO: [id number] Page 2 Signed Report - US PELVIS [id number] 16:47:00 Patient Name: JATINDER DUPREE Unit No: [id number] EXAMS: CPT CODE: [id number] US PELVIS COMPLETE 82587 Exam: Pelvic ultrasound Exam date: June 23, 2019 Comparison: October 13, 2016 HISTORY: Left lower quadrant pain. The patient is status post hysterectomy. Real-time transabdominal and transvaginal imaging of the pelvis demonstrates a surgically absent uterus. Neither ovary is convincingly identified. Peristaltic bowel is identified throughout the pelvis. No free fluid or masses are identified. IMPRESSION: 1. Status post hysterectomy. 2. Nonvisualization of the ovaries. 3. No abnormalities identified. at 1647 Reported and signed by: Grecia Babb MD CC: Bernardino Valentine MD Technologist: Farrah Guzman RDMS Probe: Trnscrbd D/ (1647) t.SOLOMONR.CER Orig Print D/T: S: 06/23/2019 (1651) [facility] NAME: JATINDER DUPREE [facility] Radiology Department PHYS: DANIELLEGABRIEL Bernardino Smith [address] : 1955 AGE: 64 SEX: F [place] [address] LOC: KeilaRAD PHONE #: [phone] EXAM DATE: 06/23/2019 STATUS: REG CLI FAX #: [phone] RAD NO: [id number] Page 1 Signed Report Patient Name: JATINDER DUPREE Unit No: [id number] EXAMS: CPT CODE: [id number] US PELVIS COMPLETE 47941 <Continued> [facility] NAME: JATINDER DUPREE [facility] Radiology Department PHYS: Bernardino Cevallos [address] : 1955 AGE: 64 SEX: F [place], [place] [address] LOC: F.RAD PHONE #: [phone] EXAM DATE: 06/23/2019 STATUS: REG CLI FAX #: [phone] RAD NO: [id number] [address] Chest Abdomen Pelvis with Contrast [id number] 15:56:27 Essentially stable small recurrence at the pancreatectomy surgical margin with possible marginal improvement since 02/07/2019.Interface, Radiology Results In - 04/17/2019 9:59 AM CSTFULL RESULT:Examination: CT Chest abdomen pelvis with Contrast PANCREAS, 04/15/2019 12:59 PM.Clinical History: Pancreatic cancer.Indication: Restaging.Comparison: PET/CT 02/07/2019.Technique: CT of the chest abdomen pelvis with IV and oral contrast (pancreas protocol).Findings: [Chest]Right- sided chest port present with catheter tip terminating in the superior cavoatr ial junction.No new pulmonary nodule, consolidation or effusion. A couple tiny p ulmonary nodules are unchanged when compared to 10/25/2017.No enlarging lymph no tika identified.Small thyroid nodules again noted.[Abdomen/Pelvis]Patient is stat us-post distal pancreatectomy and splenectomy.The small hypermetabolic focus monica ng the pancreatectomy margin on recent PET/CT correlated with a 1.6 cm region of soft tissue thickening; currently, there is an approximately 1.4 cm region of s oft tissue suggesting marginal improvement. Other regional mild stranding is sta ble. There was bulky recurrence noted in this region 10/25/2017.No suspicious le twyla related to the other solid organs. Thickened distal stomach again noted whi ch may be related to prior radiation therapy.No enlarging lymph nodes identified .The gallbladder is unremarkable.No biliary dilatation, hydronephrosis, or bowel obstruction. Trace free fluid noted in the pelvis. Patient is status-post hyste rectomy. Mild to moderate degree of retained feces.[Bones] Unchanged without memo picious lesion. Lower cervical anterior fusion construct noted. Stimulator devic e again seen along the posterior lumbar spine. There is a posterior fusion lumba r construct.IMPRESSION:Essentially stable small recurrence at the pancreatectomy surgical margin with possible marginal improvement since 02/07/2019.MD Trenton LYN NGS Blood - MD GARCIA Blood Control is required for all Molecular orders of two or more genes to receive testing on the current 146 gene STGA 2018 DNA Panel. Bernard ugarte MD NGS Blood Control is not ordered, testing will be routed the 50-gene, CM50, panel.2019-03-27 16:00:01* Test Item Value Reference Range Interpretation Comments Molecular Diagnostics (Received) (test code = 8400) Yes MD ChowdhuryCT ABDOMEN W [place] [address] Patient Name: JATINDER DUPREE MR #: [id number] : 1955 Age/Sex: 62/F Req #: [id number] Adm Physician: Ordered by: TONO MARVIN MD Report #: [id number] Location: CT Room/Bed: Procedure: [id number] CT/CT ABDOMEN W Exam Date: 08/09/17 Exam Time: 1729 REPORT STATUS: Signed PROCEDURE: CT ABDOMEN WITH CONTRAST TECHNIQUE: The abdomen was scann ed utilizing a multidetector helical scanner from the diaphragm to the iliac crest after the IV administration of 100 cc of Isovue 370 and the oral admini stration of water. Coronal and sagittal multiplanar reformations were obtai haley. DLP: 96.5 mGy-cm COMPARISON: CT 12/11/2016 and 12/15/2016 INDIC ATIONS: MALIGNANT NEOPLASM PANCREAS FINDINGS: LOWER THORAX: Normal. HEPATOBILIARY: No focal hepatic lesions. No biliary ductal dilatation. SP MCKENZIE: Interval splenectomy. PANCREAS: Interval partial pancreatectomy of the body and tail. A 2.1 x 1.5 x 2.1 cm post-operative fluid collection is noted along the resection margin. No focal masses or ductal dilatation within the remaining portions. ADRENALS: No adrenal nodules. KIDNEYS: No hydrone phrosis, stones, or solid mass lesions. A few tiny hypodensities in both kidn eys are too small to characterize but statistically likely cysts. COLLIN TONEUM / RETROPERITONEUM: No free air or fluid. LYMPH NODES: No lymphadenopath y. VESSELS: Unremarkable. Portal, splenic, portal and superior mesenteric v eins are patent. Splenic vein is absent. GI TRACT: Visualized portions of the bowel demonstrate no distention or wall thickening. BONES AND SOFT TISSUES: Status post fusion of L4-L5 and L5-S1 with bone stimulator. No acute or aggressive osseous lesions. Midline laparotomy scar. IMPRESSION: Interval resection of the pancreatic body and tail with a small post-opera tive fluid collection along the resection margin. Interval splenectomy. N o evidence of recurrent or metastatic disease in the visualized abdomen. Dictated by: Balta Gorman M.D. on 08/09/2017 at 18:10 Electronic ally approved by: Balta Gorman M.D. on 08/09/2017 at 18:10 D ictated By: BALTA GORMAN MD 09 COPY TO: ARTURO MARVIN MD CT ABDOMEN/PELVIS [place] [address] Patient Name: JATINDER DUPREE MR #: [id number] : 1955 Age/Sex: 61/F Req #: [id number] Adm Physician: Ordered by: TONO MARVIN MD Report #: [id number] Location: CT Room/Bed: Procedure: [id number] CT/CT ABDOMEN/PELVIS WOW Ex am Date: 12/15/16 Exam Time: 1639 REPORT STATUS : Signed PROCEDURE: CT ABDOMEN T PELVIS W/WO CONTRAST TECHNIQUE: T he abdomen and pelvis were scanned utilizing a multidetector helical scanner from the diaphragm to the lesser trochanter before and after the IV administr ation of 100 cc of Isovue 370 and the oral administration of water. Coronal and sagittal multiplanar reformations were obtained. Total DLP: 438.58 COMPARISON: [facility], CT, CT ABDOMEN/PELVIS W, 12/11/2016, 15 :50. INDICATIONS: PANCREATIC MASS PROTOCOL FINDINGS: LOWER THORA X: Normal. HEPATOBILIARY: No focal hepatic lesions. No biliary ductal dil atation. SPLEEN: No splenomegaly. PANCREAS: Re-demonstration of an ill-defin ed low-attenuation lesion in the proximal to mid pancreatic body, which is es timated at 1.6 x 1.2 cm on venous phase imaging 83 series 3, associated with mild dilatation of the main pancreatic duct distal to it in the distal pancre atic body and tail The pancreatic duct in the head and neck is normal in ca liber. ADRENALS: No adrenal nodules. KIDNEYS/URETERS: No hydronephrosis, stones, or solid mass lesions. PELVIC ORGANS/BLADDER: Status post hysterectom y. PERITONEUM / RETROPERITONEUM: No free air or fluid. LYMPH NODES: No l ymphadenopathy. VESSELS: Unremarkable. Atherosclerotic opacifications of the a bdomen aorta and iliac arteries without aneurysmal dilatation. Major branches are patent. GI TRACT: No distention or wall thickening. Scatter coloni c diverticulosis without diverticulitis. BONES AND SOFT TISSUES: Small fat containing umbilical hernia. Status post fusion of L4-L5 and L5-S1 with b one stimulator. IMPRESSION: 1. Ill-defined, 1.6 cm low attenuation l esion in the mid pancreatic body resulting in mild dilatation of the main clemons creatic duct distal to it. Again, this is concerning for a pancreatic adenoca rcinoma. Recommend tissue diagnosis. Ion Rao M.D. Dictated by: Ion Rao M.D. on 12/15/2016 at 18:08 Electro nically approved by: Ion Rao M.D. on 12/15/2016 at 18:08 Dictated By: HAYDER RAO MD, MD 07 Transcribed By: SANDRA on 12/15/161807 COPY T O: TONO MARVIN MD CT ABDOMEN/PELVIS [place] [address] Patient Name: JATINDER DUPREE MR #: [id number] : 1955 Age/Sex: 61/F Req #: [id number] Adm Physician: Ordered by: TONO MARVIN MD Report #: [id number] Location: CT Room/Bed: Procedure: [id number] CT/CT ABDOMEN/PELVIS W Exam Date: Exam Time: REPORT STATUS: Signed PA OCEDURE: CT ABDOMEN AND PELVIS WITH CONTRAST TECHNIQUE: The abdomen and pelvis were scanned utilizing a multidetector helical scanner from the diaph ragm to the lesser trochanter after the IV administration of 100 cc of Isovue 370 and the oral administration of dilute Gastrografin. Coronal and sagitta l multiplanar reformations were obtained. COMPARISON: None. INDIC ATIONS: LOWER ABDOMINAL PAIN FINDINGS: LOWER THORAX: Lung bases are cl ear. HEPATOBILIARY: No focal hepatic lesions. No biliary ductal dilatatio n. Gallbladder is unremarkable. SPLEEN: No splenomegaly. PANCREAS: Il l-defined 1.1 x 1.1 x 1.4 cm hypodense lesion in the proximal pancreatic body (series 2 image 22 and sagittal image 68). There is mild pancreatic atrophy and ductal dilation distal to this lesion (for example series 2, image 21). The pancreatic duct in the head and neck is normal in caliber. No other foca l lesions. No peripancreatic inflammatory stranding. No involvement of the c eliac trunk or SMA. No portal vein, SMV or splenic vein involvement. AD RENALS: No adrenal nodules. KIDNEYS/URETERS: No hydronephrosis, stones, or cliff id mass lesions. PELVIC ORGANS/BLADDER: Bladder is decompressed, but grossly unremarkable. Uterus is absent. No adnexal masses. PERITONEUM / RETROPER ITONEUM: No free air or fluid. LYMPH NODES: No lymphadenopathy. VESSELS: Mil d atherosclerotic calcification of the distal abdominal aorta GI TRACT: The visualized bowel shows no dilation or obstruction. BONES AND SOFT TIS SUES: No acute bony abnormalities. Posterior fusion hardware L4-S1. Medical d evices device is noted in the soft tissues posterior to the right paraspinal muscle at the level of L4 IMPRESSION: 1. No acute abdominopelvic abn ormalities. 2. 1.4 cm hypodense lesion in the proximal pancreatic body, suspic ious for neoplasm (likely pancreatic adenocarcinoma). Recommend contrast e nhanced CT abdomen with pancreas mass protocol for further evaluation. 3. Find ings discussed with Dr. Marvin December 11, 2016 at 1700 hrs. Lorenzo Post M.D. Dictated by: Lorenzo Post M.D. on 12/11/2016 at 16:5 5 Electronically approved by: Lorenzo Post M.D. on 12/11/2016 at 17:04 Dictated By: LORENZO POST MD 03 Transcribed By: SANDRA on 12/11/161703 COPY TO: TONO MARVIN MD
--- NOTE | 2020-03-12 03:25 | Diagnostic Imaging Report ---
EXAM: Abdomen Radiograph 2 View(s) supine and upright INDICATION: Abdominal pain ^FLAT AND UPRIGHT ^Y COMPARISON: None FINDINGS: Electronic devices project over the L4 vertebral body and left hemiabdomen. Posterior fusion of L4-S1, incompletely assessed. Gas and stool are seen throughout the colon to the level of the rectum in a nonobstructive pattern. No dilated small bowel loops. No free air. Non specific calcific density projects over the right hepatic lobe. IMPRESSION: Nonobstructive bowel gas pattern. Signed by: Bernardino Elias MD on 03/12/2020 3:22 AM
== END 2020-03-12 04:12 | disposition home or self-care (01) ==
LOC: ER 01:39
DX: R10.10 Upper abdominal pain, unspecified (principal); C25.9 Malignant neoplasm of pancreas, unspecified; E11.65 Type 2 diabetes mellitus with hyperglycemia
CPT/HCPCS: 36415; 74019; 80053; 81001; 82150; 82550; 82553; 83690; 84484; 85025; 93005; 99284; C9113

== ENCOUNTER → 2020-09-06 | Outpatient (CLI) | payer BC | LOC: MRI 12:47 | PROVIDERS: ATTEND Emergency Medicine | DX: M54.16 Radiculopathy, lumbar region (principal) | CPT/HCPCS: 72148 ==

== ENCOUNTER → 2021-05-27 | Outpatient (CLI) | payer MEDICARE | LOC: CT 16:21 | PROVIDERS: ATTEND Emergency Medicine | DX: M54.2 Cervicalgia (principal); M54.6 Pain in thoracic spine; E11.40 Type 2 diabetes mellitus with diabetic neuropathy, unspecified | CPT/HCPCS: 72125; 72128 ==